=== PATIENT | female | born 1965 | race Asian ===

== ENCOUNTER 2016-12-17 05:11 | Inpatient (IN) | payer OTHER ==
[2016-12-17] MEDS ORDERED: MAGNESIUM SULFATE/D5W 1 GM/100 ML RTUPB IV PRN (05:14)
[2016-12-17] MEDS ORDERED: METHYLPREDNISOLONE INJ 125 MG/2 ML SDV IV ONE (05:14)
[2016-12-17] MEDS ORDERED: IPRATROPIUM/ALBUTEROL 0.5-2.5 MG/3 ML AMPUL NEB ONE ×3 (05:14→05:21)
[2016-12-17] MEDS ORDERED: AZITHROMYCIN INJ 500 MG VIAL IV ONE (05:22)
[2016-12-17] MEDS ORDERED: CEFTRIAXONE 1 GM/D5W RTU 1 GM/50 ML RTUPB IV ONE (05:22)
[2016-12-17] MEDS ORDERED: ALBUTEROL SULFATE 0.083% NEB 2.5 MG/3 ML AMPUL NEB ONE (05:23)
[2016-12-17 05:33] LABS: VENOUS BLOOD BASE EXCESS -11.3 mmol/L; VENOUS BLOOD HCO3 16.9 mmol/L (20-32); VENOUS BLOOD PCO2 46.5 mmHg (35-63)
[2016-12-17 05:34] LABS: ABSOLUTE BASOPHILS # (AUTO) 0.1 10^3/uL (0.0-0.2); ABSOLUTE EOSINOPHILS # (AUTO) 0.3 10^3/uL (0.0-0.6); ABSOLUTE MONOCYTES (AUTO) 1.7 10^3/uL (0.1-1.4); ABSOLUTE NEUT (AUTO) 12.2 10^3/uL (1.7-8.2); BASOPHILS % (AUTO) 0.3 % (0-2); EOSINOPHILS % (AUTO) 1.7 % (0-6); HEMATOCRIT 38.6 % (36.0-47.0); HEMOGLOBIN 12.5 g/dL (12.0-15.5); HGB HCT DIFFERENCE -1.1; MEAN CORPUSCULAR HEMOGLOBIN 28.2 pg (27.0-33.4); MEAN CORPUSCULAR HGB CONC 32.4 g/dL (32.0-36.0); MEAN CORPUSCULAR VOLUME 87 fl (80-97); MONOCYTES % (AUTO) 8.6 % (3-13); RED BLOOD COUNT 4.43 10^6/uL (3.72-5.28); RED CELL DISTRIBUTION WIDTH 13.3 % (11.5-14.0); SEGMENTED NEUTROPHILS % (AUTO) 63.4 % (42-78); WHITE BLOOD COUNT 19.2 10^3/uL (4.0-10.5)
[2016-12-17 05:35] LABS: VENOUS BLOOD PH 7.18 (7.30-7.42)
--- NOTE | 2016-12-17 05:35 | RADIOLOGY REPORT (SQ) ---
EXAM DESCRIPTION: CHEST SINGLE VIEW COMPLETED DATE/TIME: 12/17/2016 5:22 am REASON FOR STUDY: hypoxia COMPARISON: Chest x-ray 03/17/2013. EXAM PARAMETERS: NUMBER OF VIEWS: One view. TECHNIQUE: Single frontal radiographic view of the chest acquired. RADIATION DOSE: NA LIMITATIONS: None. FINDINGS: LUNGS AND PLEURA: There are extensive bilateral ground-glass opacities, more confluent in the perihilar regions. No pleural effusion or pneumothorax. MEDIASTINUM AND HILAR STRUCTURES: No obvious masses. HEART AND VASCULAR STRUCTURES: The heart is not enlarged. There is vascular congestion. BONES: No acute findings. HARDWARE: None in the chest. IMPRESSION: Extensive bilateral ground-glass opacities, suggestive of pulmonary edema, superimposed pneumonia is not excludable. Vascular congestion. TECHNICAL DOCUMENTATION: JOB ID: [id number]
[2016-12-17 05:45] LABS: PROTHROMBIN TIME 12.6 SEC (11.4-15.4)
--- NOTE | 2016-12-17 05:45 | ER Document Report ---
ED Respiratory Problem - General Mode of Arrival: Wheelchair Information source: Patient TRAVEL OUTSIDE OF THE [place] IN LAST 30 DAYS: No - HPI Similar symptoms previously: No Recently seen / treated by doctor: No <ELIZABETH TORRES - Last Filed: 12/17/16 06:06> <KIMBERLEY PUENTE - Last Filed: 12/17/16 10:01> - General Chief Complaint: Breathing Difficulty Stated Complaint: DIFFICULTY BREATHING Notes: Patient is a 51 year old female presenting to the emergency department for dyspnea. Patient has had a productive cough with clear sputum for the past few days. Patient has also been short of breath for the past 2 days. Patient denies any fever. Patient is a diabetic, has hypertension and hypercholesterolemia. Patient is not a smoker. Patient has no history of asthma or COPD. Patient has not been on any recent antibiotics. Patient's PCP is Dr. Reid. Patient is in respiratory distress so HPI is limited. (ELIZABETH TORRES) - Related Data Allergies/Adverse Reactions: Penicillins Allergy (Verified 12/17/16 06:07) Home Medications: Current Home Medications Amlodipine Besylate 1 tab PO QPM 12/17/16 [History] Atorvastatin Calcium 1 tab PO QPM 12/17/16 [History] Fluticasone Propionate [Flonase Nasal [employer] 50 Mcg/[employer] 16 gm] 1 spray IH DAILY 12/17/16 [History] Losartan Potassium 1 tab PO QPM 12/17/16 [History] Metformin HCl [Glucophage] 1 tab PO BID 12/17/16 [History] Metoprolol Tartrate [Lopressor] 1 tab PO BID 12/17/16 [History] Montelukast Sodium 1 tab PO QPM 12/17/16 [History] Past Medical History - General Information source: Patient - Social History Smoking Status: Never Smoker Cigarette use (# per day): No Chew tobacco use (# tins/day): No Smoking Education Provided: No Frequency of alcohol use: None Drug Abuse: None Family History: None Patient has suicidal ideation: No Patient has homicidal ideation: No - Past Medical History Cardiac Medical History: Reports: Hx Hypercholesterolemia, Hx Hypertension Endocrine Medical History: Reports: Hx Diabetes Mellitus Type 2 Surgical Hx: Negative <ELIZABETH TORRES - Last Filed: 12/17/16 06:06> Review of Systems - Review of Systems Constitutional: No symptoms reported. denies: Fever EENT: No symptoms reported Cardiovascular: No symptoms reported Respiratory: See HPI, Cough, Short of breath, Wheezing Gastrointestinal: No symptoms reported Genitourinary: No symptoms reported Female Genitourinary: No symptoms reported Musculoskeletal: No symptoms reported Skin: No symptoms reported Hematologic/Lymphatic: No symptoms reported Neurological/Psychological: No symptoms reported -: Yes All other systems reviewed and negative <ELIZABETH TORRES - Last Filed: 12/17/16 06:06> Physical Exam <ELIZABETH TORRES - Last Filed: 12/17/16 06:06> - Skin Skin Temperature: Cool Skin Moisture: Dry <KIMBERLEY PUENTE - Last Filed: 12/17/16 10:01> - Vital signs Vitals: Resp Pulse Ox 38 H 79 L 12/17/16 05:12 12/17/16 05:12 - Notes Notes: GENERAL: Alert, interacts well. Severe distress. HEAD: Normocephalic, atraumatic. EYES: Appear normal. Pupils equal, round, and reactive to light. ENT: Moist mucus membranes, tongue midline. NECK: Full range of motion. Supple. Trachea midline. LUNGS: Tachypnea. Hypoxic. Air movement is decreased bilaterally. Severe respiratory distress. HEART: Regular rate and rhythm. No murmurs, gallops, or rubs. ABDOMEN: Soft, non-tender. Non-distended. Normal bowel sounds. EXTREMITIES: Moves all 4 extremities spontaneously. Normal strength. No edema. Cyanosis. NEUROLOGICAL: Alert and oriented x3. No focal neurological deficits. GCS 15. PSYCH: Normal affect, normal mood. SKIN: Warm, dry, normal turgor. (ELIZABETH TORRES) Course - Laboratory Result Diagrams: 12/17/16 05:10 12/17/16 05:10 - Consults Dr. Romero Time consulted: 05:48 <ELIZABETH TORRES - Last Filed: 12/17/16 06:06> - Laboratory Result Diagrams: 12/17/16 05:10 12/17/16 05:10 - Diagnostic Test Radiology reviewed: Image reviewed, Reports reviewed <KIMBERLEY PUENTE - Last Filed: 12/17/16 10:01> - Re-evaluation Re-evalutation: 12/17/16 Patient presents with respiratory distress, tachycardia, and hypoxia. Patient denies any history of lung or heart problems. Patient is diabetic with hypertension. Patient initial oxygen saturation and 60s-70s. Patient with cyanosis and cool. Decreased breath sounds bilaterally. Patient given nebs, Solu-Medrol, magnesium, and placed on BiPAP. The patient is improving but chest x-ray showing bilateral pneumonia. Blood culture sent. Antibiotics initiated. Discussed with Dr. Romero and recommend that the patient be placed in the ICU as she is on FiO2 100% on BiPAP. Discussed with the patient that she has bilateral pneumonia and appears to be septic. Also discussed intubation but the patient is feeling better and appears better and will does not need to be intubated at this time. (KIMBERLEY PUENTE) - Vital Signs Vital signs: Temp Pulse Resp BP Pulse Ox 99.0 F 105 H 30 H 143/66 H 97 12/17/16 08:32 12/17/16 08:32 12/17/16 08:32 12/17/16 08:56 12/17/16 09:00 - Laboratory Laboratory results interpreted by me: 12/17/16 12/17/16 12/17/16 05:10 05:10 05:10 WBC 19.2 H Absolute Neutrophils 12.2 H Absolute Lymphocytes 5.0 H Absolute Monocytes 1.7 H VBG pH VBG HCO3 Carbon Dioxide 16 L Glucose 369 H POC Glucose Lactic Acid 6.2 H Phosphorus Magnesium Urine Glucose (UA) Urine Ketones 12/17/16 12/17/16 12/17/16 05:10 05:10 05:10 WBC Absolute Neutrophils Absolute Lymphocytes Absolute Monocytes VBG pH 7.18 L* VBG HCO3 16.9 L Carbon Dioxide Glucose POC Glucose Lactic Acid Phosphorus 4.8 H Magnesium 1.5 L Urine Glucose (UA) Urine Ketones 12/17/16 12/17/16 05:14 06:00 WBC Absolute Neutrophils Absolute Lymphocytes Absolute Monocytes VBG pH VBG HCO3 Carbon Dioxide Glucose POC Glucose 358 H Lactic Acid Phosphorus Magnesium Urine Glucose (UA) >=500 H Urine Ketones TRACE H - Consults Dr. Romero Reason for consultation: 12/17/16 05:[address] Correa who is assemblies and installations inspector for Dr. Reid. He will admit the patient to ICU. (ELIZABETH TORRES) Critical Care Note - Critical Care Note Total time excluding time spent on procedures (mins): 45 - Evaluation and management of respiratory distress, pneumonia, sepsis, coordination of admission , counseling of patient <KIMBERLEY PUENTE - Last Filed: 12/17/16 10:01> Discharge <ELIZABETH TORRES - Last Filed: 12/17/16 06:06> - Discharge Admitting Provider: [facility] Admitted: ICU <KIMBERLEY PUENTE - Last Filed: 12/17/16 10:01> - Discharge Clinical Impression: Respiratory distress Pneumonia Qualifiers: Pneumonia type: due to unspecified organism Laterality: bilateral Lung location : lower lobe of lung Qualified Code(s): J18.9 - Pneumonia, unspecified organism Sepsis Qualifiers: Sepsis type: sepsis due to unspecified organism Qualified Code(s): A41.9 - Sepsis, unspecified organism Condition: Fair Disposition: ADMITTED INPATIENT Scribe Attestation: 12/17/16 10:01 I personally performed the services described in the documentation, reviewed and edited the documentation which was dictated to the scribe in my presence, and it accurately records my words and actions. (KIMBERLEY PUENTE) Scribe Documentation - Scribe Written by Scrketty:: Harjinder Reid 12/17/2016 5:52 acting as scribe for :: Ashlie <ELIZABETH TORRES - Last Filed: 12/17/16 06:06>
[2016-12-17 05:47] LABS: ALANINE AMINOTRANSFERASE 24 U/L (9-52); ALBUMIN 4.1 g/dL (3.5-5.0); ALKALINE PHOSPHATASE 87 U/L (38-126); ANION GAP 19 (5-19); ASPARTATE AMINO TRANSFERASE 19 U/L (14-36); BILIRUBIN,DIRECT 0.3 mg/dL (0.0-0.4); BILIRUBIN,TOTAL 0.8 mg/dL (0.2-1.3); BLOOD UREA NITROGEN 16 mg/dL (7-20); CALCIUM 9.6 mg/dL (8.4-10.2); CARBON DIOXIDE 16 mmol/L (22-30); CHLORIDE 103 mmol/L (98-107); CREATINE KINASE 95 U/L (30-135); GLUCOSE 369 mg/dL (75-110); POTASSIUM 3.8 mmol/L (3.6-5.0); TOTAL PROTEIN 7.2 g/dL (6.3-8.2)
[2016-12-17] MEDS ORDERED: VANCOMYCIN HCL INJ 1000 MG VIAL IV ONE (05:48)
[2016-12-17 06:00] LABS: TROPONIN I < 0.012 ng/mL
[2016-12-17 06:37] LABS: APPEARANCE,URINE CLEAR; BILIRUBIN,URINE NEGATIVE (NEGATIVE); GLUCOSE, URINE >=500 mg/dL (NEGATIVE); KETONES,URINE TRACE mg/dL (NEGATIVE); LEUKOCYTE ESTERASE,URINE NEGATIVE (NEGATIVE); NITRITE,URINE NEGATIVE (NEGATIVE); PROTEIN,URINE NEGATIVE (NEGATIVE); URINE SPECIFIC GRAVITY 1.011; UROBILINOGEN,URINE NEGATIVE mg/dL (<2.0)
[2016-12-17] MEDS ORDERED: DEXTROSE 40% GEL 15 GM TUBE PO PRN ×2 (06:45)
[2016-12-17] MEDS ORDERED: FUROSEMIDE INJ/PF 40 MG/4 ML SDV IV ONE (06:45)
[2016-12-17] MEDS ORDERED: DEXTROSE 50%-WATER 25 GM/50 ML DISP.SYRIN IV PRN ×2 (06:45)
[2016-12-17] MEDS ORDERED: GLUCAGON,HUMAN RECOMB 1 MG INJ IM PRN (06:45)
[2016-12-17] MEDS ORDERED: LEVOFLOXACIN 750 MG/D5W RTU 750 MG/150 ML RTUPB IV ONE (07:00)
[2016-12-17 07:10] LABS: LIPASE 88.4 U/L (23-300); PHOSPHORUS 4.8 mg/dL (2.5-4.5)
[2016-12-17 07:18] LABS: URINE BARBITURATES SCREEN NEGATIVE; URINE METHADONE SCREEN NEGATIVE; URINE OPIATES LOW NEGATIVE; URINE PHENCYCLIDINE SCREEN NEGATIVE
[2016-12-17 07:42] LABS: THYROID STIMULATING HORMONE 1.59 uIU/mL (0.47-4.68)
[2016-12-17] MEDS: IPRATROPIUM/ALBUTEROL 0.5-2.5 MG/3 ML AMPUL NEB PRN (07:54)
--- NOTE | 2016-12-17 08:12 | EKG REPORT ---
SEVERITY:- ABNORMAL ECG - ATRIAL FIBRILLATION BORDERLINE INFERIOR Q WAVES : Confirmed by: Ty Nevarez MD 17-Dec-2016 08:11:24
[2016-12-17 08:19] LABS: ARTERIAL BLOOD BASE EXCESS -9.1 mmol/L; ARTERIAL BLOOD O2 SATURATION 98.1 % (94-98)
--- NOTE | 2016-12-17 09:17 | RADIOLOGY REPORT (SQ) ---
EXAM DESCRIPTION: CT CHEST WITHOUT COMPLETED DATE/TIME: 12/17/2016 8:59 am REASON FOR STUDY: pneumonia COMPARISON: Radiographs from earlier. TECHNIQUE: CT scan performed of the chest without intravenous contrast. Images reviewed with lung, soft tissue and bone windows. Reconstructed coronal and sagittal MPR images reviewed. All images st ored on PACS. All CT scanners at this facility use dose modulation, iterative reconstruction, and/or weight based d osing when appropriate to reduce radiation dose to as low as reasonably achievable (ALARA). [facility]: Dose Right [facility]: CareDose [facility]: Dose Right [facility]: Teradose 4D [facility]: Smart MomentCam RADIATION DOSE: Up-to-date CT equipment and radiation dose reduction techniques were employed. CTDIv ol: 17.6 mGy. DLP: 638 mGy-cm. mGy. LIMITATIONS: No technical limitations. FINDINGS: LUNGS AND PLEURA: Diffuse patchy ground-glass infiltrates in the upper lobes. Areas of mo re focal dense consolidation particularly in the lower lobes. Small to moderate bilateral pleural ef fusions. HILAR AND MEDIASTINAL STRUCTURES: Limited assessment without contrast. No bulky adenopathy or mass. HEART AND VASCULAR STRUCTURES: Heart size looks relatively normal. No aortic aneurysm. No pericardi al effusion. UPPER ABDOMEN: No significant findings. Limited exam. THYROID AND OTHER SOFT TISSUES: No masses. No adenopathy. BONES: No significant finding. HARDWARE: None in the chest. OTHER: No other significant findings. IMPRESSION: As seen radiographically, extensive airspace infiltrates. Bilateral effusions. Presuma inge related to pulmonary edema. Superimposed pneumonia is also in the differential. TECHNICAL DOCUMENTATION: JOB ID: [id number] Quality ID # [id number]: Final reports with documentation of one or more dose reduction techniques (e.g., Au tomated exposure control, adjustment of the mA and/or kV according to patient size, use of iterative reconstruction technique) 2010 [employer]- All Rights Reserved
[2016-12-17] MEDS: ENOXAPARIN SODIUM INJ 40 MG/0.4 ML DISP.SYRIN SUBCUT SCH (10:55)
[2016-12-17 11:22] LABS: ARTERIAL BLOOD BASE EXCESS -8.2 mmol/L; ARTERIAL BLOOD O2 SATURATION 95.1 % (94-98)
[2016-12-17] MEDS ORDERED: METOPROLOL TARTRATE 50 MG TABLET PO SCH (11:45)
[2016-12-17] MEDS ORDERED: METFORMIN HCL PO SCH (11:45)
[2016-12-17] MEDS ORDERED: VANCOMYCIN HCL 0 MG in DEXTROSE 5%-WATER 250 ML IV NR (11:45)
[2016-12-17] MEDS ORDERED: IMIPENEM/CILASTATIN SODIUM INJ 500 MG VIAL IV ONE (12:00)
[2016-12-17 12:03] LABS: CREATINE KINASE MB 1.31 ng/mL (<4.55); TROPONIN I 0.026 ng/mL
[2016-12-17 13:20] LABS: PROTHROMBIN TIME 13.1 SEC (11.4-15.4)
[2016-12-17 13:21] LABS: PARTIAL THROMBOPLASTIN TIME 35.3 SEC (23.5-35.8)
--- NOTE | 2016-12-17 13:33 | PDOC H&P ---
History of Present Illness Admission Date/PCP: 12/17/16 06:37 HONEY GONZALEZ MD History of Present Illness: Patient is a 51-year-old female with history of type 2 diabetes mellitus she came to the emergency room for evaluation of dyspnea, cough the cough is productive of sputum. She was evaluated in the emergency room, she was in respiratory distress and she required positive pressure ventilation with BiPAP machine. The hemogram showed WBC 19.2 thousand venous pH was 7.18 that was elevated lactic acid in the blood. The initial chest x-ray that was done suggest pulmonary edema but the BMP was normal which virtually rule out CHF as a potential cause of the x-ray findings. A CT scan of the chest was done without contrast showed diffuse patchy groundglass infiltrates in the upper lobes, areas of more focal dense consolidation particularly in the lower lobes also found was moderate bilateral pleural effusion. She has very extensive pneumonic process in a relatively young female who does not smoke cigarettes she is a diabetic though ,that is a risk factor for pneumonia by itself but it would be reasonable to rule out HIV infection in this patient though unlikely. Past Medical History Cardiac Medical History: Reports: Hyperlipidema, Hypertension Endocrine Medical History: Reports: Diabetes Mellitus Type 2 Social History Smoking Status: Never Smoker Frequency of Alcohol Use: Occasional Drugs: None Hx Prescription Drug Abuse: No Family History Family History: None Parental Family History Reviewed: Yes Children Family History Reviewed: Yes Sibling(s) Family History Reviewed.: Yes Medication/Allergy Home Medications: Amlodipine Besylate 1 tab PO QPM 12/17/16 Atorvastatin Calcium 1 tab PO QPM 12/17/16 Fluticasone Propionate [Flonase Nasal [place] 50 Mcg/[place] 16 gm] 1 spray IH DAILY 12/17/16 Losartan Potassium 1 tab PO QPM 12/17/16 Metformin HCl [Glucophage] 1 tab PO BID 12/17/16 Metoprolol Tartrate [Lopressor] 1 tab PO BID 12/17/16 Montelukast Sodium 1 tab PO QPM 12/17/16 Allergies/Adverse Reactions: Penicillins Allergy (Verified 12/17/16 06:07) Review of Systems Constitutional: PRESENT: chills Eyes: ABSENT: visual disturbances Ears: ABSENT: hearing changes Cardiovascular: ABSENT: chest pain, dyspnea on exertion, edema, orthropnea, palpitations Respiratory: PRESENT: cough, dyspnea, sputum Gastrointestinal: ABSENT: abdominal pain, constipation, diarrhea, hematemesis, hematochezia, nausea, vomiting Genitourinary: ABSENT: dysuria, hematuria Musculoskeletal: ABSENT: joint swelling Integumentary: ABSENT: rash, wounds Neurological: ABSENT: abnormal gait, abnormal speech, confusion, dizziness, focal weakness, syncope Psychiatric: ABSENT: anxiety, depression, homidical ideation, suicidal ideation Endocrine: ABSENT: cold intolerance, heat intolerance, menstrual abnormalities, polydipsia, polyuria Hematologic/Lymphatic: ABSENT: easy bleeding, easy bruising, lymphadenopathy Physical Exam Vital Signs: Temp Pulse Resp BP Pulse Ox 99.0 F 92 21 H 112/63 100 12/17/16 08:32 12/17/16 12:50 12/17/16 12:50 12/17/16 12:50 12/17/16 12:50 Intake & Output 12/16/16 12/17/16 12/18/16 06:59 06:59 06:59 Output Total 150 Balance -150 Weight 80.4 kg General appearance: PRESENT: severe distress Head exam: PRESENT: atraumatic, normocephalic Eye exam: PRESENT: conjunctiva pink, EOMI, PERRLA. ABSENT: scleral icterus Ear exam: PRESENT: normal external ear exam Mouth exam: PRESENT: moist, tongue midline Neck exam: PRESENT: full ROM Respiratory exam: PRESENT: rales, rhonchi Cardiovascular exam: PRESENT: RRR, +S1, +S2 Vascular exam: PRESENT: normal capillary refill GI/Abdominal exam: PRESENT: normal bowel sounds, soft Rectal exam: PRESENT: deferred Neurological exam: PRESENT: alert, awake, oriented to person, oriented to place , oriented to time, oriented to situation, CN II-XII grossly intact Psychiatric exam: PRESENT: appropriate affect, normal mood Skin exam: PRESENT: dry, intact, warm Results Laboratory Results: 12/17/16 12/17/16 12/17/16 07:11 07:56 09:46 Carbonic Acid 1.24 HCO3/H2CO3 Ratio 14:1 ABG pH 7.25 L ABG pCO2 41.1 ABG pO2 127.2 H ABG HCO3 17.6 L ABG O2 Saturation 98.1 H ABG Base Excess -9.1 FiO2 100% Lactic Acid 5.9 H Ammonia 15.0 12/17/16 10:00 Carbonic Acid 0.96 L HCO3/H2CO3 Ratio 17:1 ABG pH 7.34 L ABG pCO2 31.8 L ABG pO2 78.8 L ABG HCO3 16.6 L ABG O2 Saturation 95.1 ABG Base Excess -8.2 FiO2 40% Lactic Acid Ammonia 12/17/16 12/17/16 11:20 11:20 Creatine Kinase 121 CK-MB (CK-2) 1.31 Troponin I 0.026 Impressions: Chest CT 12/17/16 00:00 IMPRESSION: As seen radiographically, extensive airspace infiltrates. Bilateral effusions. Presumably related to pulmonary edema. Superimposed pneumonia is also in the differential. Chest X-Ray 12/17/16 05:13 IMPRESSION: Extensive bilateral ground-glass opacities, suggestive of pulmonary edema, superimposed pneumonia is not excludable. Vascular congestion. Assessment & Plan - Diagnosis (1) Bilateral pneumonia Qualifiers: Pneumonia type: due to unspecified organism Lung location: unspecified part of lung Qualified Code(s): J18.9 - Pneumonia, unspecified organism Is this a current diagnosis for this admission?: Yes Plan: She has extensive bilateral pneumonia, she will be treated with antibiotic to cover community acquired pathogens as well as MRSA, IV Levaquin, aztreonam and vancomycin this week cover gram-negative organisms and gram-positive organisms (2) Diabetes mellitus Qualifiers: Diabetes mellitus type: type 2 Diabetes mellitus complication status: without complication 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
[2016-12-17] MEDS: HYDROCORTISONE SOD SUCCINATE INJ/PF 100 MG/2 ML SDV IV SCH ×2 (14:00→21:41)
[2016-12-17] MEDS: MAGNESIUM SULFATE/D5W 1 GM/100 ML RTUPB IV SCH ×3 (14:00→17:14)
[2016-12-17] MEDS: NORMAL SALINE 1000 ML 1,000 ML IV PRN (14:00)
[2016-12-17 14:31] LABS: ADD HIVPANEL? NO; HIV (1 AND 2) ANTIBODY NEGATIVE (NEGATIVE)
[2016-12-17] MEDS: VANCOMYCIN HCL 1,250 MG in DEXTROSE 5%-WATER 250 ML IV SCH (16:47)
[2016-12-17] MEDS: AMLODIPINE BESYLATE 5 MG TABLET PO SCH (17:14)
[2016-12-17] MEDS: MONTELUKAST SODIUM 10 MG TABLET PO SCH (17:14)
[2016-12-17] MEDS: LOSARTAN POTASSIUM 50 MG TABLET PO SCH (17:14)
[2016-12-17] MEDS: AZTREONAM 1 GM in DEXTROSE 5%-WATER 50 ML IV SCH (17:15)
[2016-12-17 17:51] LABS: CREATINE KINASE MB 2.29 ng/mL (<4.55); TROPONIN I 0.017 ng/mL
--- NOTE | 2016-12-17 17:54 | PDOC CONSULTATION ---
Consultation Consult Date: 12/17/16 Attending physician:: ORION RODRÍGUEZ Consult reason:: acute resp failure History of Present Illness Admission Date/PCP: 12/17/16 06:37 HONEY GONZALEZ MD History of Present Illness: VJ PICKENS is a 51 year old female c/o increasing SOB and cough for last 3 days presented hypercapnic and hypoxic.She has nad no hemoptysis but has had a hx of + PPD and was treated in the past no history chronic lung disease as a child.She admits to exsposure to passive smoke as a child and as an adult.She has never smoked and denies exposure to potential respiratory toxins .She has a cat and a dog.No recent travel.Sleeps on two pillows no PND,nocturnal cough or edema.She admits to snoring restlesssleep nocturia,unrestful slrrp and excessive daytime somulence.She is currently comfortable but mildly tachypnic on BI PAP Past Medical History Cardiac Medical History: Reports: Hyperlipidema, Hypertension Endocrine Medical History: Reports: Diabetes Mellitus Type 2 Social History Information Source: Patient, COUNTS INCLUDE 234 BEDS AT THE [facility] Records Lives with: Family Smoking Status: Never Smoker Passive smoke exposure as: Both Frequency of Alcohol Use: Occasional Drugs: None Hx Prescription Drug Abuse: No Family History Family History: None, CAD, DM, Hyperlipidemia, Hypertension, Malignancy Parental Family History Reviewed: Yes Children Family History Reviewed: Yes Sibling(s) Family History Reviewed.: Yes Medication/Allergy Home Medications: Amlodipine Besylate 5 mg PO QPM 12/17/16 Atorvastatin Calcium 40 mg PO QPM 12/17/16 Fluticasone Propionate [Flonase Nasal [place] 50 Mcg/[place] 16 gm] 1 spray IH DAILY 12/17/16 Losartan Potassium 100 mg PO QPM 12/17/16 Metformin HCl [Glucophage] 1,000 mg PO Q12 12/17/16 Metoprolol Tartrate [Lopressor] 50 mg PO Q12 12/17/16 Montelukast Sodium 10 mg PO QPM 12/17/16 Allergies/Adverse Reactions: Penicillins Allergy (Verified 12/17/16 06:07) Review of Systems All systems: reviewed and no additional remarkable complaints except as stated Physical Exam Vital Signs: Temp Pulse Resp BP Pulse Ox 99.0 F 101 H 20 112/63 100 12/17/16 08:32 12/17/16 10:09 12/17/16 12:00 12/17/16 11:56 12/17/16 12:00 Intake & Output 12/16/16 12/17/16 12/18/16 06:59 06:59 06:59 Weight 80.4 kg General appearance: PRESENT: cooperative, disheveled, mild distress, obese, well -developed Head exam: PRESENT: atraumatic, normocephalic Eye exam: PRESENT: conjunctiva pale, EOMI Mouth exam: PRESENT: dry mucosa, neck supple, tongue midline Neck exam: ABSENT: carotid bruit, JVD, lymphadenopathy, thyromegaly Respiratory exam: PRESENT: decreased breath sounds, prolonged expiratory phas, rales, rhonchi, symmetrical, unlabored. ABSENT: retraction, stridor Cardiovascular exam: PRESENT: RRR, +S1, +S2 Pulses: PRESENT: normal radial pulses GI/Abdominal exam: PRESENT: normal bowel sounds, soft. ABSENT: distended, guarding, mass, organolmegaly, rebound, tenderness Rectal exam: PRESENT: deferred Musculoskeletal exam: PRESENT: normal inspection Neurological exam: PRESENT: alert, awake Psychiatric exam: PRESENT: normal mood Skin exam: PRESENT: dry, warm Results Laboratory Results: 12/17/16 12/17/16 12/17/16 07:11 07:56 09:46 Carbonic Acid 1.24 HCO3/H2CO3 Ratio 14:1 ABG pH 7.25 L ABG pCO2 41.1 ABG pO2 127.2 H ABG HCO3 17.6 L ABG O2 Saturation 98.1 H ABG Base Excess -9.1 FiO2 100% Lactic Acid 5.9 H Ammonia 15.0 12/17/16 10:00 Carbonic Acid 0.96 L HCO3/H2CO3 Ratio 17:1 ABG pH 7.34 L ABG pCO2 31.8 L ABG pO2 78.8 L ABG HCO3 16.6 L ABG O2 Saturation 95.1 ABG Base Excess -8.2 FiO2 40% Lactic Acid Ammonia 12/17/16 11:20 Creatine Kinase 121 Impressions: Chest CT 12/17/16 00:00 IMPRESSION: As seen radiographically, extensive airspace infiltrates. Bilateral effusions. Presumably related to pulmonary edema. Superimposed pneumonia is also in the differential. Chest X-Ray 12/17/16 05:13 IMPRESSION: Extensive bilateral ground-glass opacities, suggestive of pulmonary edema, superimposed pneumonia is not excludable. Vascular congestion. Assessment & Plan - Diagnosis (1) Acute respiratory failure with hypoxia Is this a current diagnosis for this admission?: Yes Plan: bipap (2) Bilateral pneumonia Qualifiers: Pneumonia type: due to unspecified organism Lung location: unspecified part of lung Qualified Code(s): J18.9 - Pneumonia, unspecified organism Is this a current diagnosis for this admission?: Yes Plan: CAP antibiotics (3) Sepsis Qualifiers: Sepsis type: sepsis due to unspecified organism Qualified Code(s): A41.9 - Sepsis, unspecified organism Is this a current diagnosis for this admission?: Yes - Time Critical Time spent with patient: 35 or more minutes - Inpatient Certification Based on my medical assessment, after consideration of the patient's comorbidities, presenting symptoms, or acuity I expect that the services needed warrant INPATIENT care.: Yes
[2016-12-17] MEDS ORDERED: AMLODIPINE BESYLATE 5 MG TABLET PO SCH (18:00)
[2016-12-17] MEDS ORDERED: MONTELUKAST SODIUM 10 MG TABLET PO SCH (18:00)
[2016-12-17] MEDS ORDERED: (PENDING PHARMACY ID) (Losartan Potassium [Losartan Potassium] 1 TAB) PO SCH (18:00)
[2016-12-17] MEDS ORDERED: ATORVASTATIN CALCIUM 40 MG TABLET PO SCH (18:00)
[2016-12-17] MEDS: INSULIN LISPRO 100 UNIT/ML 3 ML VIAL SUBCUT PRN (18:27)
[2016-12-17] MEDS: ACETYLCYSTEINE 20% SOLN 800 MG/4 ML VIAL.NEB NEB SCH (20:06)
[2016-12-17] MEDS: METOPROLOL TARTRATE 50 MG TABLET PO SCH (21:41)
[2016-12-17] MEDS: ATORVASTATIN CALCIUM 40 MG TABLET PO SCH (21:42)
[2016-12-17] MEDS: METFORMIN HCL 500 MG TABLET PO SCH (21:42)
[2016-12-17 23:39] LABS: CREATINE KINASE MB 2.55 ng/mL (<4.55); TROPONIN I 0.02 ng/mL
[2016-12-18] MEDS: AZTREONAM 1 GM in DEXTROSE 5%-WATER 50 ML IV SCH ×3 (02:31→17:47)
[2016-12-18] MEDS: VANCOMYCIN HCL 1,250 MG in DEXTROSE 5%-WATER 250 ML IV SCH ×2 (03:42→17:47)
[2016-12-18 05:28] LABS: ABSOLUTE LYMPHOCYTES (AUTO) 1.4 10^3/uL (0.5-4.7); ABSOLUTE NEUT (AUTO) 11.9 10^3/uL (1.7-8.2); BASOPHILS % (AUTO) 0.1 % (0-2); HEMATOCRIT 29.8 % (36.0-47.0); HGB HCT DIFFERENCE 0.2; LYMPHOCYTES % (AUTO) 9.8 % (13-45); MEAN CORPUSCULAR HEMOGLOBIN 28.2 pg (27.0-33.4); MEAN CORPUSCULAR HGB CONC 33.4 g/dL (32.0-36.0); MEAN CORPUSCULAR VOLUME 85 fl (80-97); MONOCYTES % (AUTO) 6.9 % (3-13); RED BLOOD COUNT 3.53 10^6/uL (3.72-5.28); RED CELL DISTRIBUTION WIDTH 13.2 % (11.5-14.0); SEGMENTED NEUTROPHILS % (AUTO) 83.2 % (42-78); WHITE BLOOD COUNT 14.3 10^3/uL (4.0-10.5)
[2016-12-18] MEDS: HYDROCORTISONE SOD SUCCINATE INJ/PF 100 MG/2 ML SDV IV SCH ×3 (05:32→21:34)
[2016-12-18 05:37] LABS: ALANINE AMINOTRANSFERASE 23 U/L (9-52); ALBUMIN 3.4 g/dL (3.5-5.0); ALKALINE PHOSPHATASE 60 U/L (38-126); ANION GAP 10 (5-19); ASPARTATE AMINO TRANSFERASE 16 U/L (14-36); BILIRUBIN,DIRECT 0.3 mg/dL (0.0-0.4); BILIRUBIN,TOTAL 0.6 mg/dL (0.2-1.3); BLOOD UREA NITROGEN 23 mg/dL (7-20); CALCIUM 8.7 mg/dL (8.4-10.2); CARBON DIOXIDE 19 mmol/L (22-30); CHLORIDE 107 mmol/L (98-107); CHOLESTEROL 137.37 mg/dL (0-200); CREATININE RESULT 0.76 mg/dL (0.52-1.25); Direct HDL 38 mg/dL (>40); GLUCOSE 195 mg/dL (75-110); SODIUM 136.3 mmol/L (137-145); TOTAL PROTEIN 6.1 g/dL (6.3-8.2); TRIGLYCERIDES 81 mg/dL (<150)
[2016-12-18 05:48] LABS: DIRECT LDL 83 mg/dL (<100)
[2016-12-18 06:14] LABS: MAGNESIUM 2.6 mg/dL (1.6-2.3); POTASSIUM 4.8 mmol/L (3.6-5.0)
[2016-12-18 06:19] LABS: ARTERIAL BLOOD BASE EXCESS -6.5 mmol/L; ARTERIAL BLOOD O2 SATURATION 98.4 % (94-98)
[2016-12-18] MEDS: IPRATROPIUM/ALBUTEROL 0.5-2.5 MG/3 ML AMPUL NEB PRN (07:54)
[2016-12-18] MEDS: ACETYLCYSTEINE 20% SOLN 800 MG/4 ML VIAL.NEB NEB SCH ×2 (07:54→19:40)
--- NOTE | 2016-12-18 07:56 | RADIOLOGY REPORT (SQ) ---
EXAM DESCRIPTION: CHEST SINGLE VIEW COMPLETED DATE/TIME: 12/18/2016 6:10 am REASON FOR STUDY: resp failure COMPARISON: 12/17/2016. EXAM PARAMETERS: NUMBER OF VIEWS: One view. TECHNIQUE: Single frontal radiographic view of the chest acquired. RADIATION DOSE: NA LIMITATIONS: None. FINDINGS: LUNGS AND PLEURA: Moderate lung volumes. [id number] mixed interstitial and airspace opacities with lower lobe predominance. MEDIASTINUM AND HILAR STRUCTURES: No masses. Contour normal. HEART AND VASCULAR STRUCTURES: Mild enlargement of the cardiac silhouette. Atherosclerosis. BONES: No acute findings. HARDWARE: None in the chest. OTHER: No other significant finding. IMPRESSION: [id number] mixed interstitial and airspace opacities. Interval improvement. TECHNICAL DOCUMENTATION: JOB ID: [id number]
--- NOTE | 2016-12-18 09:42 | PDOC PROGRESS REPORT ---
Subjective Progress Note for:: 12/18/16 Subjective:: Patient also see a cardiology patient was admitted for the respiratory distress and extensive pneumonia Patient was initially put on a BiPAP currently on a nasal cannula Patient is currently doing much better Patients denied any chest pain denied any shortness of the breath Patients denied any heart problem in the past Physical Exam Vital Signs: Temp Pulse Resp BP Pulse Ox 97.6 F 72 16 111/54 L 100 12/18/16 08:00 12/18/16 07:59 12/18/16 08:00 12/18/16 07:56 12/18/16 08:00 Intake & Output 12/17/16 12/18/16 12/19/16 06:59 06:59 06:59 Intake Total 1474 Output Total 1050 Balance 424 Weight 78.5 kg General appearance: PRESENT: no acute distress, well-developed, well-nourished Head exam: PRESENT: atraumatic, normocephalic Eye exam: PRESENT: conjunctiva pink, EOMI, PERRLA. ABSENT: scleral icterus Ear exam: PRESENT: normal external ear exam Mouth exam: PRESENT: moist, tongue midline Neck exam: PRESENT: full ROM. ABSENT: carotid bruit, JVD, lymphadenopathy, thyromegaly Respiratory exam: PRESENT: clear to auscultation kal Cardiovascular exam: PRESENT: RRR. ABSENT: diastolic murmur, rubs, systolic murmur Pulses: PRESENT: normal dorsalis pedis pul, +2 pedal pulses bilateral Vascular exam: PRESENT: normal capillary refill GI/Abdominal exam: PRESENT: normal bowel sounds, soft. ABSENT: distended, guarding, mass, organolmegaly, rebound, tenderness Rectal exam: PRESENT: deferred Neurological exam: PRESENT: alert, awake, oriented to person, oriented to place , oriented to time, oriented to situation, CN II-XII grossly intact. ABSENT: motor sensory deficit Psychiatric exam: PRESENT: appropriate affect, normal mood. ABSENT: homicidal ideation, suicidal ideation Skin exam: PRESENT: dry, intact, warm. ABSENT: cyanosis, rash Results Laboratory Results: 12/18/16 05:00 12/18/16 05:00 12/17/16 12/17/16 12/18/16 09:46 10:00 05:00 WBC RBC Hgb Hct MCV MCH MCHC RDW Plt Count Seg Neutrophils % Lymphocytes % Monocytes % Eosinophils % Basophils % Absolute Neutrophils Absolute Lymphocytes Absolute Monocytes Absolute Eosinophils Absolute Basophils Carbonic Acid 0.96 L HCO3/H2CO3 Ratio 17:1 ABG pH 7.34 L ABG pCO2 31.8 L ABG pO2 78.8 L ABG HCO3 16.6 L ABG O2 Saturation 95.1 ABG Base Excess -8.2 FiO2 40% Sodium 136.3 L Potassium 4.8 D Chloride 107 Carbon Dioxide 19 L Anion Gap 10 BUN 23 H Creatinine 0.76 Est GFR ( Amer) > 60 Est GFR (Non-Af Amer) > 60 Glucose 195 H Lactic Acid 5.9 H Calcium 8.7 Magnesium 2.6 H D Total Bilirubin 0.6 AST 16 ALT 23 Alkaline Phosphatase 60 Total Protein 6.1 L Albumin 3.4 L Triglycerides 81 Cholesterol 137.37 LDL Cholesterol Direct 83 VLDL Cholesterol 16.0 HDL Cholesterol 38 L 12/18/16 12/18/16 05:00 06:00 WBC 14.3 H RBC 3.53 L Hgb 10.0 L D Hct 29.8 L MCV 85 MCH 28.2 MCHC 33.4 RDW 13.2 Plt Count 304 Seg Neutrophils % 83.2 H Lymphocytes % 9.8 L Monocytes % 6.9 Eosinophils % 0.0 Basophils % 0.1 Absolute Neutrophils 11.9 H Absolute Lymphocytes 1.4 Absolute Monocytes 1.0 Absolute Eosinophils 0.0 Absolute Basophils 0.0 Carbonic Acid 1.04 L HCO3/H2CO3 Ratio 17:1 ABG pH 7.34 L ABG pCO2 34.7 L ABG pO2 127.2 H ABG HCO3 18.5 L ABG O2 Saturation 98.4 H ABG Base Excess -6.5 FiO2 4 LITERS Sodium Potassium Chloride Carbon Dioxide Anion Gap BUN Creatinine Est GFR ( Amer) Est GFR (Non-Af Amer) Glucose Lactic Acid Calcium Magnesium Total Bilirubin AST ALT Alkaline Phosphatase Total Protein Albumin Triglycerides Cholesterol LDL Cholesterol Direct VLDL Cholesterol HDL Cholesterol 12/17/16 12/17/16 12/17/16 11:20 11:20 17:15 Creatine Kinase 121 141 H CK-MB (CK-2) 1.31 Troponin I 0.026 12/17/16 12/17/16 12/17/16 17:15 23:06 23:06 Creatine Kinase 138 H CK-MB (CK-2) 2.29 2.55 Troponin I 0.017 0.020 Impressions: Chest CT 12/17/16 00:00 IMPRESSION: As seen radiographically, extensive airspace infiltrates. Bilateral effusions. Presumably related to pulmonary edema. Superimposed pneumonia is also in the differential. Chest X-Ray 12/18/16 06:00 IMPRESSION: [id number] mixed interstitial and airspace opacities. Interval improvement. Assessment & Plan - Diagnosis (1) Acute respiratory failure with hypoxia Is this a current diagnosis for this admission?: Yes Plan: Currently all improving most likely from underlying pneumonia (2) Bilateral pneumonia Qualifiers: Pneumonia type: due to unspecified organism Lung location: unspecified part of lung Qualified Code(s): J18.9 - Pneumonia, unspecified organism Is this a current diagnosis for this admission?: Yes Plan: Continues to broad-spectrum antibiotic (3) Diabetes mellitus Qualifiers: Diabetes mellitus type: type 2 Diabetes mellitus complication status: without complication Diabetes mellitus terminal gauger supervisor insulin use: without terminal gauger supervisor use Qualified Code(s): E11.9 - Type 2 diabetes mellitus without complications Is this a current diagnosis for this admission?: Yes Plan: Continues a sliding scale [facility] (4) Hypertension Is this a current diagnosis for this admission?: Yes Plan: Currently stable (5) Pleural effusion Is this a current diagnosis for this admission?: Yes Plan: Patient scheduled for thoracocentesis - Time Time Spent with patient: 15-24 minutes Medications reviewed and adjusted accordingly: Yes Anticipated discharge: Home Within: Other - Inpatient Certification Medical Necessity: Need for IV Antibiotics Post Hospital Care: D/C Fashion Adviser Documentation - Plan Summary Plan Summary: Continues to IV antibiotic scheduled for thoracocentesis and continues follow with the pulmonary
[2016-12-18] MEDS: METFORMIN HCL 500 MG TABLET PO SCH ×2 (09:45→21:32)
[2016-12-18] MEDS: METOPROLOL TARTRATE 50 MG TABLET PO SCH ×2 (09:45→21:32)
[2016-12-18] MEDS: ENOXAPARIN SODIUM INJ 40 MG/0.4 ML DISP.SYRIN SUBCUT SCH (09:46)
[2016-12-18] MEDS ORDERED: LEVOFLOXACIN 750 MG/D5W RTU 750 MG/150 ML RTUPB IV SCH (10:00)
[2016-12-18] MEDS: INSULIN LISPRO 100 UNIT/ML 3 ML VIAL SUBCUT PRN ×2 (11:23→21:41)
--- NOTE | 2016-12-18 12:33 | RADIOLOGY REPORT (SQ) ---
EXAM DESCRIPTION: U/S CHEST COMPLETED DATE/TIME: 12/18/2016 11:13 am REASON FOR STUDY: bilateral pleural effusion COMPARISON: CT chest 12/17/2016 TECHNIQUE: Limited chest ultrasound bilaterally LIMITATIONS: No technical limitations FINDINGS: There are very small bilateral pleural effusions, smaller than on CT exam 12/17/2016. Thes e findings were discussed with Dr. Romero. Ultrasound-guided thoracentesis canceled IMPRESSION: Very small bilateral pleural effusions. No thoracentesis performed TECHNICAL DOCUMENTATION: JOB ID: [id number] [employer]- All Rights Reserved
--- NOTE | 2016-12-18 12:57 | PDOC PROGRESS REPORT ---
Subjective Progress Note for:: 12/18/16 Subjective:: patient without complaints I feel better minutes Physical Exam Vital Signs: Temp Pulse Resp BP Pulse Ox 97.6 F 72 16 111/54 L 100 12/18/16 08:00 12/18/16 07:59 12/18/16 08:00 12/18/16 07:56 12/18/16 08:00 Intake & Output 12/17/16 12/18/16 12/19/16 06:59 06:59 06:59 Intake Total 1474 Output Total 1050 Balance 424 Weight 78.5 kg General appearance: PRESENT: no acute distress, cooperative, obese, well- developed Head exam: PRESENT: atraumatic, normocephalic Eye exam: PRESENT: conjunctiva pale Mouth exam: PRESENT: neck supple, tongue midline Neck exam: ABSENT: carotid bruit, JVD, lymphadenopathy, thyromegaly Respiratory exam: PRESENT: decreased breath sounds, prolonged expiratory phas, rhonchi, symmetrical, unlabored Cardiovascular exam: PRESENT: RRR, +S1, +S2 Pulses: PRESENT: normal radial pulses GI/Abdominal exam: PRESENT: normal bowel sounds, soft. ABSENT: distended, guarding, mass, organolmegaly, rebound, tenderness Rectal exam: PRESENT: deferred Gentrourinary exam: PRESENT: indwelling catheter Musculoskeletal exam: PRESENT: normal inspection Neurological exam: PRESENT: alert, awake Psychiatric exam: PRESENT: normal mood Skin exam: PRESENT: dry, warm Results Laboratory Results: 12/18/16 05:00 12/18/16 05:00 12/17/16 12/17/16 12/18/16 09:46 10:00 05:00 WBC RBC Hgb Hct MCV MCH MCHC RDW Plt Count Seg Neutrophils % Lymphocytes % Monocytes % Eosinophils % Basophils % Absolute Neutrophils Absolute Lymphocytes Absolute Monocytes Absolute Eosinophils Absolute Basophils Carbonic Acid 0.96 L HCO3/H2CO3 Ratio 17:1 ABG pH 7.34 L ABG pCO2 31.8 L ABG pO2 78.8 L ABG HCO3 16.6 L ABG O2 Saturation 95.1 ABG Base Excess -8.2 FiO2 40% Sodium 136.3 L Potassium 4.8 D Chloride 107 Carbon Dioxide 19 L Anion Gap 10 BUN 23 H Creatinine 0.76 Est GFR ( Amer) > 60 Est GFR (Non-Af Amer) > 60 Glucose 195 H Lactic Acid 5.9 H Calcium 8.7 Magnesium 2.6 H D Total Bilirubin 0.6 AST 16 ALT 23 Alkaline Phosphatase 60 Total Protein 6.1 L Albumin 3.4 L Triglycerides 81 Cholesterol 137.37 LDL Cholesterol Direct 83 VLDL Cholesterol 16.0 HDL Cholesterol 38 L 12/18/16 12/18/16 05:00 06:00 WBC 14.3 H RBC 3.53 L Hgb 10.0 L D Hct 29.8 L MCV 85 MCH 28.2 MCHC 33.4 RDW 13.2 Plt Count 304 Seg Neutrophils % 83.2 H Lymphocytes % 9.8 L Monocytes % 6.9 Eosinophils % 0.0 Basophils % 0.1 Absolute Neutrophils 11.9 H Absolute Lymphocytes 1.4 Absolute Monocytes 1.0 Absolute Eosinophils 0.0 Absolute Basophils 0.0 Carbonic Acid 1.04 L HCO3/H2CO3 Ratio 17:1 ABG pH 7.34 L ABG pCO2 34.7 L ABG pO2 127.2 H ABG HCO3 18.5 L ABG O2 Saturation 98.4 H ABG Base Excess -6.5 FiO2 4 LITERS Sodium Potassium Chloride Carbon Dioxide Anion Gap BUN Creatinine Est GFR ( Amer) Est GFR (Non-Af Amer) Glucose Lactic Acid Calcium Magnesium Total Bilirubin AST ALT Alkaline Phosphatase Total Protein Albumin Triglycerides Cholesterol LDL Cholesterol Direct VLDL Cholesterol HDL Cholesterol 12/17/16 12/17/16 12/17/16 11:20 11:20 17:15 Creatine Kinase 121 141 H CK-MB (CK-2) 1.31 Troponin I 0.026 12/17/16 12/17/16 12/17/16 17:15 23:06 23:06 Creatine Kinase 138 H CK-MB (CK-2) 2.29 2.55 Troponin I 0.017 0.020 Impressions: Chest CT 12/17/16 00:00 IMPRESSION: As seen radiographically, extensive airspace infiltrates. Bilateral effusions. Presumably related to pulmonary edema. Superimposed pneumonia is also in the differential. Chest X-Ray 12/18/16 06:00 IMPRESSION: [id number] mixed interstitial and airspace opacities. Interval improvement. Assessment & Plan - Diagnosis (1) Acute respiratory failure with hypoxia Is this a current diagnosis for this admission?: Yes Plan: Improved significantly (2) Bilateral pneumonia Qualifiers: Pneumonia type: due to unspecified organism Lung location: unspecified part of lung Qualified Code(s): J18.9 - Pneumonia, unspecified organism Is this a current diagnosis for this admission?: Yes Plan: WBC decreased clinically quite improved (3) Sepsis Qualifiers: Sepsis type: sepsis due to unspecified organism Qualified Code(s): A41.9 - Sepsis, unspecified organism Is this a current diagnosis for this admission?: Yes - Time Critical Time spent with patient: 25-34 minutes
[2016-12-18] MEDS: NORMAL SALINE 1000 ML 1,000 ML IV PRN (14:30)
[2016-12-18] MEDS: LOSARTAN POTASSIUM 50 MG TABLET PO SCH (17:48)
[2016-12-18] MEDS: MONTELUKAST SODIUM 10 MG TABLET PO SCH (17:48)
[2016-12-18] MEDS: AMLODIPINE BESYLATE 5 MG TABLET PO SCH (17:48)
--- NOTE | 2016-12-18 20:37 | EKG REPORT ---
SEVERITY:- NORMAL ECG - SINUS RHYTHM : Confirmed by: Rupa Ley 18-Dec-2016 20:35:59
[2016-12-18] MEDS: GUAIFENESIN SYRP 200 MG/10 ML UDC PO PRN (21:31)
[2016-12-18] MEDS: ATORVASTATIN CALCIUM 40 MG TABLET PO SCH (21:32)
[2016-12-19] MEDS: AZTREONAM 1 GM in DEXTROSE 5%-WATER 50 ML IV SCH ×3 (02:00→19:51)
[2016-12-19] MEDS: VANCOMYCIN HCL 1,250 MG in DEXTROSE 5%-WATER 250 ML IV SCH ×2 (03:45→17:00)
[2016-12-19 04:11] LABS: ABSOLUTE BASOPHILS # (AUTO) 0.1 10^3/uL (0.0-0.2); ABSOLUTE LYMPHOCYTES (AUTO) 1.7 10^3/uL (0.5-4.7); ABSOLUTE MONOCYTES (AUTO) 0.7 10^3/uL (0.1-1.4); ABSOLUTE NEUT (AUTO) 12.7 10^3/uL (1.7-8.2); BASOPHILS % (AUTO) 0.5 % (0-2); HEMATOCRIT 31.6 % (36.0-47.0); HEMOGLOBIN 10.4 g/dL (12.0-15.5); HGB HCT DIFFERENCE -0.4; MEAN CORPUSCULAR HGB CONC 32.9 g/dL (32.0-36.0); MEAN CORPUSCULAR VOLUME 85 fl (80-97); MONOCYTES % (AUTO) 4.9 % (3-13); RED CELL DISTRIBUTION WIDTH 13.1 % (11.5-14.0); SEGMENTED NEUTROPHILS % (AUTO) 83.6 % (42-78); WHITE BLOOD COUNT 15.2 10^3/uL (4.0-10.5)
[2016-12-19 04:32] LABS: ALANINE AMINOTRANSFERASE 28 U/L (9-52); ALBUMIN 3.7 g/dL (3.5-5.0); ALKALINE PHOSPHATASE 70 U/L (38-126); ANION GAP 12 (5-19); ASPARTATE AMINO TRANSFERASE 22 U/L (14-36); BILIRUBIN,DIRECT 0.3 mg/dL (0.0-0.4); BILIRUBIN,TOTAL 0.8 mg/dL (0.2-1.3); BLOOD UREA NITROGEN 24 mg/dL (7-20); CALCIUM 8.9 mg/dL (8.4-10.2); CARBON DIOXIDE 20 mmol/L (22-30); CHLORIDE 108 mmol/L (98-107); CREATININE RESULT 0.65 mg/dL (0.52-1.25); GLUCOSE 162 mg/dL (75-110); POTASSIUM 4.8 mmol/L (3.6-5.0); SODIUM 140.4 mmol/L (137-145); TOTAL PROTEIN 6.5 g/dL (6.3-8.2)
[2016-12-19] MEDS: HYDROCORTISONE SOD SUCCINATE INJ/PF 100 MG/2 ML SDV IV SCH ×3 (06:12→21:33)
[2016-12-19] MEDS: GUAIFENESIN SYRP 200 MG/10 ML UDC PO PRN ×3 (06:26→19:10)
[2016-12-19] MEDS: ACETYLCYSTEINE 20% SOLN 800 MG/4 ML VIAL.NEB NEB SCH ×2 (07:57→19:48)
[2016-12-19] MEDS: IPRATROPIUM/ALBUTEROL 0.5-2.5 MG/3 ML AMPUL NEB PRN ×3 (07:57→19:48)
--- NOTE | 2016-12-19 09:06 | PDOC PROGRESS REPORT ---
Subjective Progress Note for:: 12/19/16 Subjective:: Patient is currently doing fair.Patients have episode of tachycardia last night with the coughing episodes. Patient's cough is getting better with the diabetes and Patient also felt short of breath when she coughs but other than that no shortness of the breath no chest pain Patient EKG was normal sinus rhythm but patients came initially the EKG was some A. fib Patient's denied any fever Physical Exam Vital Signs: Temp Pulse Resp BP Pulse Ox 97.9 F 102 H 20 133/73 H 97 12/19/16 07:49 12/19/16 08:00 12/19/16 08:00 12/19/16 07:49 12/19/16 08:00 Intake & Output 12/18/16 12/19/16 12/20/16 06:59 06:59 06:59 Intake Total 1474 1830 Output Total 1050 3000 Balance 424 -1170 Weight 78.5 kg 78.1 kg General appearance: PRESENT: no acute distress, well-developed, well-nourished Head exam: PRESENT: atraumatic, normocephalic Eye exam: PRESENT: conjunctiva pink, EOMI, PERRLA. ABSENT: scleral icterus Ear exam: PRESENT: normal external ear exam Mouth exam: PRESENT: moist, tongue midline Neck exam: PRESENT: full ROM. ABSENT: carotid bruit, JVD, lymphadenopathy, thyromegaly Respiratory exam: PRESENT: clear to auscultation kal Cardiovascular exam: PRESENT: RRR. ABSENT: diastolic murmur, rubs, systolic murmur Pulses: PRESENT: normal dorsalis pedis pul, +2 pedal pulses bilateral Vascular exam: PRESENT: normal capillary refill GI/Abdominal exam: PRESENT: normal bowel sounds, soft. ABSENT: distended, guarding, mass, organolmegaly, rebound, tenderness Rectal exam: PRESENT: deferred Neurological exam: PRESENT: alert, awake, oriented to person, oriented to place , oriented to time, oriented to situation, CN II-XII grossly intact. ABSENT: motor sensory deficit Psychiatric exam: PRESENT: appropriate affect, normal mood. ABSENT: homicidal ideation, suicidal ideation Skin exam: PRESENT: dry, intact, warm. ABSENT: cyanosis, rash Results Laboratory Results: 12/19/16 04:04 12/19/16 04:04 12/19/16 12/19/16 04:04 04:04 WBC 15.2 H RBC 3.70 L Hgb 10.4 L Hct 31.6 L MCV 85 MCH 28.0 MCHC 32.9 RDW 13.1 Plt Count 324 Seg Neutrophils % 83.6 H Lymphocytes % 11.0 L Monocytes % 4.9 Eosinophils % 0.0 Basophils % 0.5 Absolute Neutrophils 12.7 H Absolute Lymphocytes 1.7 Absolute Monocytes 0.7 Absolute Eosinophils 0.0 Absolute Basophils 0.1 Sodium 140.4 Potassium 4.8 Chloride 108 H Carbon Dioxide 20 L Anion Gap 12 BUN 24 H Creatinine 0.65 Est GFR ( Amer) > 60 Est GFR (Non-Af Amer) > 60 Glucose 162 H Calcium 8.9 Total Bilirubin 0.8 AST 22 ALT 28 Alkaline Phosphatase 70 Total Protein 6.5 Albumin 3.7 12/17/16 12/17/16 12/17/16 11:20 11:20 17:15 Creatine Kinase 121 141 H CK-MB (CK-2) 1.31 Troponin I 0.026 12/17/16 12/17/16 12/17/16 17:15 23:06 23:06 Creatine Kinase 138 H CK-MB (CK-2) 2.29 2.55 Troponin I 0.017 0.020 Impressions: Chest CT 12/17/16 00:00 IMPRESSION: As seen radiographically, extensive airspace infiltrates. Bilateral effusions. Presumably related to pulmonary edema. Superimposed pneumonia is also in the differential. Chest X-Ray 12/18/16 06:00 IMPRESSION: [id number] mixed interstitial and airspace opacities. Interval improvement. Chest Ultrasound 12/18/16 11:37 IMPRESSION: Very small bilateral pleural effusions. No thoracentesis performed Assessment & Plan - Diagnosis (1) Acute respiratory failure with hypoxia Is this a current diagnosis for this admission?: Yes Plan: Currently all stable with the nasal cannula 3 L we will discuss with the pulmonary may be patients need a some CT angiogram to rule out other etiology are not (2) Bilateral pneumonia Qualifiers: Pneumonia type: due to unspecified organism Lung location: unspecified part of lung Qualified Code(s): J18.9 - Pneumonia, unspecified organism Is this a current diagnosis for this admission?: Yes Plan: Continues to IV antibiotic (3) Diabetes mellitus Qualifiers: Diabetes mellitus type: type 2 Diabetes mellitus complication status: without complication Diabetes mellitus director long term care insulin use: without penitentiary use Qualified Code(s): E11.9 - Type 2 diabetes mellitus without complications Is this a current diagnosis for this admission?: Yes Plan: Continues a sliding scale with the [facility] protocol (4) Hypertension Is this a current diagnosis for this admission?: Yes Plan: Currently stable (5) Pleural effusion Is this a current diagnosis for this admission?: Yes Plan: Patient ultrasound of the chest did not show any pleural fluid so did not go for thoracocentesis - Time Time Spent with patient: 15-24 minutes Medications reviewed and adjusted accordingly: Yes Anticipated discharge: Home Within: Other - Inpatient Certification Medical Necessity: Need For IV Fluids, Need for IV Antibiotics Post Hospital Care: D/C Etiquette Coach Documentation - Plan Summary Plan Summary: We will order the echocardiograms with this initial presentations with the EKG was abnormal as per discussed with the cardiology suggests patients might need a event monitor on the discharge We discussed with the pulmonary for the CT scan Continues IV antibiotic Discussed with the nurse in ICU taking care of the patient This with the patient about the all the plan
[2016-12-19 09:14] LABS: ARTERIAL BLOOD BASE EXCESS -5.8 mmol/L; ARTERIAL BLOOD O2 SATURATION 96.1 % (94-98)
[2016-12-19] MEDS: METOPROLOL TARTRATE 50 MG TABLET PO SCH ×2 (09:21→21:34)
[2016-12-19] MEDS: METFORMIN HCL 500 MG TABLET PO SCH (09:22)
[2016-12-19] MEDS: LEVOFLOXACIN 500 MG/D5W RTU 500 MG/100 ML RTUPB IV SCH (09:24)
[2016-12-19] MEDS: ENOXAPARIN SODIUM INJ 40 MG/0.4 ML DISP.SYRIN SUBCUT SCH (09:24)
[2016-12-19] MEDS: BENZONATATE 100 MG CAPSULE PO PRN ×2 (11:21→17:00)
[2016-12-19] MEDS: INSULIN LISPRO 100 UNIT/ML 3 ML VIAL SUBCUT PRN (11:21)
[2016-12-19] MEDS ORDERED: NORMAL SALINE 500 ML IV PRN ×2 (15:24→15:25)
--- NOTE | 2016-12-19 15:53 | PDOC PROGRESS REPORT ---
Subjective Progress Note for:: 12/19/16 Subjective:: I am feeling much better Physical Exam Vital Signs: Temp Pulse Resp BP Pulse Ox 97.9 F 102 H 20 133/73 H 97 12/19/16 07:49 12/19/16 08:00 12/19/16 08:00 12/19/16 07:49 12/19/16 08:00 Intake & Output 12/18/16 12/19/16 12/20/16 06:59 06:59 06:59 Intake Total 1474 1830 Output Total 1050 3000 Balance 424 -1170 Weight 78.5 kg 78.1 kg General appearance: PRESENT: no acute distress, cooperative, disheveled, obese, well-developed Head exam: PRESENT: atraumatic, normocephalic Eye exam: PRESENT: conjunctiva pale, EOMI Mouth exam: PRESENT: moist, neck supple, tongue midline Neck exam: ABSENT: carotid bruit, JVD, lymphadenopathy, thyromegaly Respiratory exam: PRESENT: decreased breath sounds, prolonged expiratory phas, rales, rhonchi, symmetrical. ABSENT: retraction, stridor, tachypnea, unlabored Cardiovascular exam: PRESENT: RRR, +S1, +S2. ABSENT: irregular rhythm Pulses: PRESENT: normal radial pulses GI/Abdominal exam: PRESENT: normal bowel sounds, soft. ABSENT: distended, guarding, mass, organolmegaly, rebound, tenderness Rectal exam: PRESENT: deferred Gentrourinary exam: PRESENT: indwelling catheter Musculoskeletal exam: PRESENT: normal inspection Neurological exam: PRESENT: alert, awake Psychiatric exam: PRESENT: normal mood Skin exam: PRESENT: dry, warm Results Laboratory Results: 12/19/16 04:04 12/19/16 04:04 12/19/16 12/19/16 04:04 04:04 WBC 15.2 H RBC 3.70 L Hgb 10.4 L Hct 31.6 L MCV 85 MCH 28.0 MCHC 32.9 RDW 13.1 Plt Count 324 Seg Neutrophils % 83.6 H Lymphocytes % 11.0 L Monocytes % 4.9 Eosinophils % 0.0 Basophils % 0.5 Absolute Neutrophils 12.7 H Absolute Lymphocytes 1.7 Absolute Monocytes 0.7 Absolute Eosinophils 0.0 Absolute Basophils 0.1 Sodium 140.4 Potassium 4.8 Chloride 108 H Carbon Dioxide 20 L Anion Gap 12 BUN 24 H Creatinine 0.65 Est GFR ( Amer) > 60 Est GFR (Non-Af Amer) > 60 Glucose 162 H Calcium 8.9 Total Bilirubin 0.8 AST 22 ALT 28 Alkaline Phosphatase 70 Total Protein 6.5 Albumin 3.7 12/17/16 12/17/16 12/17/16 11:20 11:20 17:15 Creatine Kinase 121 141 H CK-MB (CK-2) 1.31 Troponin I 0.026 12/17/16 12/17/16 12/17/16 17:15 23:06 23:06 Creatine Kinase 138 H CK-MB (CK-2) 2.29 2.55 Troponin I 0.017 0.020 Impressions: Chest CT 12/17/16 00:00 IMPRESSION: As seen radiographically, extensive airspace infiltrates. Bilateral effusions. Presumably related to pulmonary edema. Superimposed pneumonia is also in the differential. Chest X-Ray 12/18/16 06:00 IMPRESSION: [id number] mixed interstitial and airspace opacities. Interval improvement. Chest Ultrasound 12/18/16 11:37 IMPRESSION: Very small bilateral pleural effusions. No thoracentesis performed Assessment & Plan - Diagnosis (1) Acute respiratory failure with hypoxia Is this a current diagnosis for this admission?: Yes Plan: Overall improving however she has had 2 episodes of tachypnea with transient desaturations associated with tachycardia therefore we will proceed with a CTA to rule out PE (2) Bilateral pneumonia Qualifiers: Pneumonia type: due to unspecified organism Lung location: unspecified part of lung Qualified Code(s): J18.9 - Pneumonia, unspecified organism Is this a current diagnosis for this admission?: Yes (3) Sepsis Qualifiers: Sepsis type: sepsis due to unspecified organism Qualified Code(s): A41.9 - Sepsis, unspecified organism Is this a current diagnosis for this admission?: Yes - Time Critical Time spent with patient: 35 or more minutes - 55 minutes - Plan Summary Plan Summary: Patient has had multiple episodes of SVT with cough on one occasion with hemoptysis she had a negative CTA but is still coughing green phlegm will initiate Cardizem IV bolus then a drip consult cardiology initiate chest percussion and postural drainage to augment Mucomyst
--- NOTE | 2016-12-19 16:43 | RADIOLOGY REPORT (SQ) ---
EXAM DESCRIPTION: CTA CHEST COMPLETED DATE/TIME: 12/19/2016 4:12 pm REASON FOR STUDY: r/o PE COMPARISON: 12/17/2016 TECHNIQUE: CT scan of the chest performed using helical scanning technique with dynamic intravenous contrast injection. Images reviewed with lung, soft tissue and bone windows. Reconstructed coronal and sagittal MPR images reviewed. Additional 3 dimensional post-processing performed to develop Maximal Intensity Projection images (AK P). All images stored on PACS. All CT scanners at this facility use dose modulation, iterative reconstruction, and/or weight based d osing when appropriate to reduce radiation dose to as low as reasonably achievable (ALARA). [facility]: Dose Right [facility]: CareDose [facility]: Dose Right [facility]: Teradose 4D [facility]: ZikBit CONTRAST TYPE AND DOSE: contrast/concentration: Isovue 370.00 mg/ml; Total Contrast Delivered: 65.1 ml; Total Saline Delivered: 110.0 ml Contrast bolus optimized for the pulmonary arteries. Not diagnostic for the aorta. RENAL FUNCTION: Not recorded RADIATION DOSE: Up-to-date CT equipment and radiation dose reduction techniques were employed. CTDIv ol: 13.2 - 14.1 mGy. DLP: 464 mGy-cm. . LIMITATIONS: None. FINDINGS: LUNGS AND PLEURA: Fairly dense infiltrates are seen in both lungs with air bronchograms, p articularly in the right upper lobe, the upper segments of the right lower lobe, and in the left selvin hilar region and lower lobe. Moderate pleural effusions are present bilaterally. AORTA AND GREAT VESSELS: No aneurysm. Contrast bolus not optimized for the aorta. HEART: No pericardial effusion. Moderate coronary artery calcifications. PULMONARY ARTERIES: No emboli visualized in the main pulmonary arteries or the segmental branches. HILAR AND MEDIASTINAL STRUCTURES: No identified masses or abnormal nodes. HARDWARE: None in the chest. UPPER ABDOMEN: No significant findings. Limited exam. THYROID AND OTHER SOFT TISSUES: No masses. No adenopathy. BONES: No acute or significant finding. 3D MIPS: Confirm above findings. OTHER: No other significant finding. IMPRESSION: 1. There is no evidence of pulmonary embolus. 2. Multicentric pneumonia. COMMENT: Quality ID # [id number]: Final reports with documentation of one or more dose reduction techniques (e.g., Automated exposure control, adjustment of the mA and/or kV according to patient size, use of iterative reconstruction technique) TECHNICAL DOCUMENTATION: JOB ID: [id number] [employer]- All Rights Reserved
[2016-12-19] MEDS ORDERED: DILTIAZEM HCL/D5W 125 MG/125 ML RTUINJ IV ONE (16:48)
[2016-12-19] MEDS ORDERED: DILTIAZEM HCL INJ 25 MG/5 ML VIAL ONE (16:48)
[2016-12-19] MEDS ORDERED: DILTIAZEM HCL/D5W 125 MG/125 ML RTUINJ IV PRN (16:52)
[2016-12-19] MEDS ORDERED: DILTIAZEM HCL INJ 25 MG/5 ML VIAL IV ONE (17:00)
[2016-12-19] MEDS: NORMAL SALINE 1000 ML 1,000 ML IV PRN ×2 (17:01→19:55)
[2016-12-19 17:30] LABS: ALANINE AMINOTRANSFERASE 35 U/L (9-52); ALBUMIN 3.6 g/dL (3.5-5.0); ALKALINE PHOSPHATASE 83 U/L (38-126); ANION GAP 13 (5-19); ASPARTATE AMINO TRANSFERASE 24 U/L (14-36); BILIRUBIN,DIRECT 0.3 mg/dL (0.0-0.4); BILIRUBIN,TOTAL 0.6 mg/dL (0.2-1.3); BLOOD UREA NITROGEN 21 mg/dL (7-20); CALCIUM 8.6 mg/dL (8.4-10.2); CARBON DIOXIDE 20 mmol/L (22-30); CHLORIDE 108 mmol/L (98-107); CREATINE KINASE 125 U/L (30-135); CREATININE RESULT 0.86 mg/dL (0.52-1.25); GLUCOSE 200 mg/dL (75-110); MAGNESIUM 1.8 mg/dL (1.6-2.3); POTASSIUM 4.3 mmol/L (3.6-5.0); SODIUM 140.9 mmol/L (137-145); TOTAL PROTEIN 6.4 g/dL (6.3-8.2)
[2016-12-19 17:42] LABS: CREATINE KINASE MB 1.28 ng/mL (<4.55); TROPONIN I 0.061 ng/mL
[2016-12-19] MEDS: LOSARTAN POTASSIUM 50 MG TABLET PO SCH (19:09)
[2016-12-19] MEDS: AMLODIPINE BESYLATE 5 MG TABLET PO SCH (19:10)
[2016-12-19] MEDS: MONTELUKAST SODIUM 10 MG TABLET PO SCH (19:10)
[2016-12-19] MEDS: HYDROCODONE BIT/HOMATROPINE 5-1.5 MG TABLET PO PRN (20:25)
[2016-12-19] MEDS: ATORVASTATIN CALCIUM 40 MG TABLET PO SCH (21:34)
[2016-12-20] MEDS: AZTREONAM 1 GM in DEXTROSE 5%-WATER 50 ML IV SCH ×3 (01:52→17:12)
[2016-12-20] MEDS: VANCOMYCIN HCL 1,250 MG in DEXTROSE 5%-WATER 250 ML IV SCH ×3 (02:27→18:06)
[2016-12-20 04:04] LABS: ABSOLUTE LYMPHOCYTES (AUTO) 1.5 10^3/uL (0.5-4.7); ABSOLUTE MONOCYTES (AUTO) 0.6 10^3/uL (0.1-1.4); ABSOLUTE NEUT (AUTO) 9.6 10^3/uL (1.7-8.2); BASOPHILS % (AUTO) 0.2 % (0-2); HEMOGLOBIN 10.1 g/dL (12.0-15.5); HGB HCT DIFFERENCE -0.7; LYMPHOCYTES % (AUTO) 12.9 % (13-45); MEAN CORPUSCULAR HEMOGLOBIN 27.8 pg (27.0-33.4); MEAN CORPUSCULAR HGB CONC 32.6 g/dL (32.0-36.0); MEAN CORPUSCULAR VOLUME 85 fl (80-97); MONOCYTES % (AUTO) 5.4 % (3-13); RED BLOOD COUNT 3.63 10^6/uL (3.72-5.28); RED CELL DISTRIBUTION WIDTH 13.3 % (11.5-14.0); SEGMENTED NEUTROPHILS % (AUTO) 81.5 % (42-78); WHITE BLOOD COUNT 11.8 10^3/uL (4.0-10.5)
[2016-12-20 04:14] LABS: ALANINE AMINOTRANSFERASE 32 U/L (9-52); ALBUMIN 3.1 g/dL (3.5-5.0); ALKALINE PHOSPHATASE 65 U/L (38-126); ANION GAP 9 (5-19); ASPARTATE AMINO TRANSFERASE 19 U/L (14-36); BILIRUBIN,DIRECT 0.3 mg/dL (0.0-0.4); BILIRUBIN,TOTAL 0.8 mg/dL (0.2-1.3); BLOOD UREA NITROGEN 18 mg/dL (7-20); CALCIUM 8.4 mg/dL (8.4-10.2); CARBON DIOXIDE 23 mmol/L (22-30); CHLORIDE 108 mmol/L (98-107); CREATININE RESULT 0.61 mg/dL (0.52-1.25); GLUCOSE 237 mg/dL (75-110); POTASSIUM 4.3 mmol/L (3.6-5.0); SODIUM 139.9 mmol/L (137-145); TOTAL PROTEIN 5.6 g/dL (6.3-8.2)
[2016-12-20] MEDS: HYDROCORTISONE SOD SUCCINATE INJ/PF 100 MG/2 ML SDV IV SCH ×3 (05:42→22:24)
[2016-12-20] MEDS: NORMAL SALINE 1000 ML 1,000 ML IV PRN ×2 (07:58→22:24)
[2016-12-20] MEDS: INSULIN LISPRO 100 UNIT/ML 3 ML VIAL SUBCUT PRN ×3 (07:58→18:09)
[2016-12-20] MEDS: HYDROCODONE BIT/HOMATROPINE 5-1.5 MG TABLET PO PRN ×2 (09:12→16:53)
[2016-12-20] MEDS: LEVOFLOXACIN 500 MG/D5W RTU 500 MG/100 ML RTUPB IV SCH (09:13)
[2016-12-20] MEDS: BENZONATATE 100 MG CAPSULE PO PRN ×2 (09:13→17:53)
[2016-12-20] MEDS: METOPROLOL TARTRATE 50 MG TABLET PO SCH ×2 (09:13→22:24)
[2016-12-20] MEDS: ENOXAPARIN SODIUM INJ 40 MG/0.4 ML DISP.SYRIN SUBCUT SCH (09:14)
[2016-12-20] MEDS: LEVALBUTEROL HCL NEB 1.25 MG/3 ML AMPUL NEB PRN ×3 (09:24→20:13)
[2016-12-20] MEDS: ACETYLCYSTEINE 20% SOLN 800 MG/4 ML VIAL.NEB NEB SCH ×2 (09:25→20:12)
--- NOTE | 2016-12-20 09:27 | RADIOLOGY REPORT (SQ) ---
EXAM DESCRIPTION: CHEST SINGLE VIEW COMPLETED DATE/TIME: 12/20/2016 9:14 am REASON FOR STUDY: resp failure COMPARISON: Chest films 03/17/2013, 12/17/2016, 12/18/2016 CT angio chest 12/19/2016 EXAM PARAMETERS: NUMBER OF VIEWS: One view. TECHNIQUE: Single frontal radiographic view of the chest acquired. RADIATION DOSE: NA LIMITATIONS: None. FINDINGS: LUNGS AND PLEURA: Multifocal airspace disease persists, most pronounced in the right upper lobe, edema versus pneumonia. This is similar compared to CT angio chest 12/19/2016. Few Jose David lines at both bases indicating interstitial fluid. No gross pleural effusions or pneumothorax. MEDIASTINUM AND HILAR STRUCTURES: No masses. Contour normal. HEART AND VASCULAR STRUCTURES: Heart normal in size. Normal vasculature. BONES: No acute findings. HARDWARE: None in the chest. OTHER: No other significant finding. IMPRESSION: Persistent multifocal airspace disease, edema versus pneumonia. TECHNICAL DOCUMENTATION: JOB ID: [id number]
--- NOTE | 2016-12-20 10:30 | PDOC PROGRESS REPORT ---
Subjective Progress Note for:: 12/20/16 Subjective:: Patient is currently doing same. Patient was CT angiogram was done yesterday which is negative for any pulmonary embolismPatient still heart rate goes up when she moves around patient was put on a Cardizem drip yesterdayPatient still have a coughing episodes Patient's denied any chest pain and denied any shortness of the breath while resting Physical Exam Vital Signs: Temp Pulse Resp BP Pulse Ox 97.9 F 99 28 H 136/82 H 100 12/20/16 07:36 12/20/16 09:25 12/20/16 09:25 12/20/16 08:01 12/20/16 09:25 Intake & Output 12/19/16 12/20/16 12/21/16 06:59 06:59 06:59 Intake Total 1830 3075 Output Total 3000 1100 Balance -1170 1975 Weight 78.1 kg 79.8 kg General appearance: PRESENT: no acute distress, well-developed, well-nourished Head exam: PRESENT: atraumatic, normocephalic Eye exam: PRESENT: conjunctiva pink, EOMI, PERRLA. ABSENT: scleral icterus Ear exam: PRESENT: normal external ear exam Mouth exam: PRESENT: moist, tongue midline Neck exam: PRESENT: full ROM. ABSENT: carotid bruit, JVD, lymphadenopathy, thyromegaly Respiratory exam: PRESENT: clear to auscultation kal Cardiovascular exam: PRESENT: RRR, tachycardia. ABSENT: diastolic murmur, rubs , systolic murmur Pulses: PRESENT: normal dorsalis pedis pul, +2 pedal pulses bilateral Vascular exam: PRESENT: normal capillary refill GI/Abdominal exam: PRESENT: normal bowel sounds, soft. ABSENT: distended, guarding, mass, organolmegaly, rebound, tenderness Rectal exam: PRESENT: deferred Neurological exam: PRESENT: alert, awake, oriented to person, oriented to place , oriented to time, oriented to situation, CN II-XII grossly intact. ABSENT: motor sensory deficit Psychiatric exam: PRESENT: appropriate affect, normal mood. ABSENT: homicidal ideation, suicidal ideation Skin exam: PRESENT: dry, intact, warm. ABSENT: cyanosis, rash Results Laboratory Results: 12/20/16 03:37 12/20/16 03:37 12/19/16 12/19/16 12/20/16 17:07 17:07 03:37 WBC 11.8 H RBC 3.63 L Hgb 10.1 L Hct 31.0 L MCV 85 MCH 27.8 MCHC 32.6 RDW 13.3 Plt Count 312 Seg Neutrophils % 81.5 H Lymphocytes % 12.9 L Monocytes % 5.4 Eosinophils % 0.0 Basophils % 0.2 Absolute Neutrophils 9.6 H Absolute Lymphocytes 1.5 Absolute Monocytes 0.6 Absolute Eosinophils 0.0 Absolute Basophils 0.0 Sodium 140.9 Potassium 4.3 Chloride 108 H Carbon Dioxide 20 L Anion Gap 13 BUN 21 H Creatinine 0.86 Est GFR ( Amer) > 60 Est GFR (Non-Af Amer) > 60 Glucose 200 H Calcium 8.6 Magnesium 1.8 Total Bilirubin 0.6 AST 24 ALT 35 Alkaline Phosphatase 83 Total Protein 6.4 Albumin 3.6 Serum HCG, Qual NEGATIVE 12/20/16 03:37 WBC RBC Hgb Hct MCV MCH MCHC RDW Plt Count Seg Neutrophils % Lymphocytes % Monocytes % Eosinophils % Basophils % Absolute Neutrophils Absolute Lymphocytes Absolute Monocytes Absolute Eosinophils Absolute Basophils Sodium 139.9 Potassium 4.3 Chloride 108 H Carbon Dioxide 23 Anion Gap 9 BUN 18 Creatinine 0.61 Est GFR ( Amer) > 60 Est GFR (Non-Af Amer) > 60 Glucose 237 H Calcium 8.4 Magnesium Total Bilirubin 0.8 AST 19 ALT 32 Alkaline Phosphatase 65 Total Protein 5.6 L Albumin 3.1 L Serum HCG, Qual 12/17/16 12/17/16 12/17/16 11:20 11:20 17:15 Creatine Kinase 121 141 H CK-MB (CK-2) 1.31 Troponin I 0.026 12/17/16 12/17/16 12/17/16 17:15 23:06 23:06 Creatine Kinase 138 H CK-MB (CK-2) 2.29 2.55 Troponin I 0.017 0.020 12/19/16 12/19/16 17:07 17:07 Creatine Kinase 125 CK-MB (CK-2) 1.28 Troponin I 0.061 Impressions: Chest CT 12/17/16 00:00 IMPRESSION: As seen radiographically, extensive airspace infiltrates. Bilateral effusions. Presumably related to pulmonary edema. Superimposed pneumonia is also in the differential. Chest Ultrasound 12/18/16 11:37 IMPRESSION: Very small bilateral pleural effusions. No thoracentesis performed Chest/Abdomen CTA 12/19/16 00:00 IMPRESSION: 1. There is no evidence of pulmonary embolus. 2. Multicentric pneumonia. Chest X-Ray 12/20/16 00:00 IMPRESSION: Persistent multifocal airspace disease, edema versus pneumonia. Assessment & Plan - Diagnosis (1) Acute respiratory failure with hypoxia Is this a current diagnosis for this admission?: Yes Plan: Currently all stable with the nasal cannula 3 L we will discuss with the pulmonary may be patients need a some CT angiogram to rule out other etiology are not (2) Bilateral pneumonia Qualifiers: Pneumonia type: due to unspecified organism Lung location: unspecified part of lung Qualified Code(s): J18.9 - Pneumonia, unspecified organism Is this a current diagnosis for this admission?: Yes Plan: Continues to IV antibiotic (3) Diabetes mellitus Qualifiers: Diabetes mellitus type: type 2 Diabetes mellitus complication status: without complication Diabetes mellitus senior living insulin use: without senior living use Qualified Code(s): E11.9 - Type 2 diabetes mellitus without complications Is this a current diagnosis for this admission?: Yes Plan: Continues a sliding scale with the [facility] protocol (4) Hypertension Is this a current diagnosis for this admission?: Yes Plan: Currently stable (5) Pleural effusion Is this a current diagnosis for this admission?: Yes (6) Sinus tachycardia Is this a current diagnosis for this admission?: Yes Plan: Continues to Cardizem drip we will repeat the cardiac enzymes and EKG order the TSHEcho is already done waiting for the reportCardiology consult was placed - Time Time Spent with patient: 15-24 minutes Medications reviewed and adjusted accordingly: Yes Anticipated discharge: Home Within: Other - Inpatient Certification Medical Necessity: Need For IV Fluids, Need for IV Antibiotics Post Hospital Care: D/C Nuclear Security Officer Documentation - Plan Summary Plan Summary: We will waiting for the echo report will DC the DuoNeb nebulizer as per discussed with Dr. Sylvain Raines they can help for the tachycardia and added them Xopenex as needed Discussed with the Dr. Ambrose the patient has 1 and other family member in the ICU regarding the patient's current conditions Call the human resources operations director Dr. Waite is 6 unable to come and see the patient's today Call Dr. daniels other human resources operations director may be able to read the echo but not able to see the patient We will repeat the EKG and cardiac enzyme and do some changes and see whether that able to make any difference If his persistent tachycardia need a cardiology consult and if is unable to get it here will be transferred to a tertiary center discussed with the Dr. Ambrose the patient has been suggested srinivas
[2016-12-20 11:10] LABS: CREATINE KINASE MB 1.37 ng/mL (<4.55); TROPONIN I 0.034 ng/mL
--- NOTE | 2016-12-20 11:10 | PDOC PROGRESS REPORT ---
Subjective Progress Note for:: 12/20/16 Subjective:: Patient without complaints Physical Exam Vital Signs: Temp Pulse Resp BP Pulse Ox 97.9 F 93 26 H 140/89 H 100 12/20/16 07:36 12/20/16 07:36 12/20/16 07:36 12/20/16 07:36 12/20/16 07:36 Intake & Output 12/19/16 12/20/16 12/21/16 06:59 06:59 06:59 Intake Total 1830 3075 Output Total 3000 1100 Balance -1170 1975 Weight 78.1 kg 79.8 kg General appearance: PRESENT: no acute distress, cooperative, disheveled, obese, well-developed Head exam: PRESENT: atraumatic, normocephalic Eye exam: PRESENT: conjunctiva pale, EOMI Mouth exam: PRESENT: dry mucosa, neck supple, tongue midline Neck exam: ABSENT: carotid bruit, JVD, lymphadenopathy, thyromegaly Respiratory exam: PRESENT: decreased breath sounds, rales, rhonchi, symmetrical , unlabored, wheezes Cardiovascular exam: PRESENT: RRR, +S1, +S2, tachycardia Pulses: PRESENT: normal femoral pulses GI/Abdominal exam: PRESENT: normal bowel sounds, soft. ABSENT: distended, guarding, mass, organolmegaly, rebound, tenderness Rectal exam: PRESENT: deferred Gentrourinary exam: PRESENT: indwelling catheter Musculoskeletal exam: PRESENT: normal inspection Neurological exam: PRESENT: alert, awake Psychiatric exam: PRESENT: normal mood Skin exam: PRESENT: dry, warm Results Laboratory Results: 12/20/16 03:37 12/20/16 03:37 12/19/16 12/19/16 12/19/16 09:05 17:07 17:07 WBC RBC Hgb Hct MCV MCH MCHC RDW Plt Count Seg Neutrophils % Lymphocytes % Monocytes % Eosinophils % Basophils % Absolute Neutrophils Absolute Lymphocytes Absolute Monocytes Absolute Eosinophils Absolute Basophils Carbonic Acid 0.96 L HCO3/H2CO3 Ratio 19:1 ABG pH 7.38 ABG pCO2 32.0 L ABG pO2 82.5 ABG HCO3 18.4 L ABG O2 Saturation 96.1 ABG Base Excess -5.8 FiO2 3L Sodium 140.9 Potassium 4.3 Chloride 108 H Carbon Dioxide 20 L Anion Gap 13 BUN 21 H Creatinine 0.86 Est GFR ( Amer) > 60 Est GFR (Non-Af Amer) > 60 Glucose 200 H Calcium 8.6 Magnesium 1.8 Total Bilirubin 0.6 AST 24 ALT 35 Alkaline Phosphatase 83 Total Protein 6.4 Albumin 3.6 Serum HCG, Qual NEGATIVE 12/20/16 12/20/16 03:37 03:37 WBC 11.8 H RBC 3.63 L Hgb 10.1 L Hct 31.0 L MCV 85 MCH 27.8 MCHC 32.6 RDW 13.3 Plt Count 312 Seg Neutrophils % 81.5 H Lymphocytes % 12.9 L Monocytes % 5.4 Eosinophils % 0.0 Basophils % 0.2 Absolute Neutrophils 9.6 H Absolute Lymphocytes 1.5 Absolute Monocytes 0.6 Absolute Eosinophils 0.0 Absolute Basophils 0.0 Carbonic Acid HCO3/H2CO3 Ratio ABG pH ABG pCO2 ABG pO2 ABG HCO3 ABG O2 Saturation ABG Base Excess FiO2 Sodium 139.9 Potassium 4.3 Chloride 108 H Carbon Dioxide 23 Anion Gap 9 BUN 18 Creatinine 0.61 Est GFR ( Amer) > 60 Est GFR (Non-Af Amer) > 60 Glucose 237 H Calcium 8.4 Magnesium Total Bilirubin 0.8 AST 19 ALT 32 Alkaline Phosphatase 65 Total Protein 5.6 L Albumin 3.1 L Serum HCG, Qual 12/17/16 12/17/16 12/17/16 11:20 11:20 17:15 Creatine Kinase 121 141 H CK-MB (CK-2) 1.31 Troponin I 0.026 12/17/16 12/17/16 12/17/16 17:15 23:06 23:06 Creatine Kinase 138 H CK-MB (CK-2) 2.29 2.55 Troponin I 0.017 0.020 12/19/16 12/19/16 17:07 17:07 Creatine Kinase 125 CK-MB (CK-2) 1.28 Troponin I 0.061 Impressions: Chest CT 12/17/16 00:00 IMPRESSION: As seen radiographically, extensive airspace infiltrates. Bilateral effusions. Presumably related to pulmonary edema. Superimposed pneumonia is also in the differential. Chest X-Ray 12/18/16 06:00 IMPRESSION: [id number] mixed interstitial and airspace opacities. Interval improvement. Chest Ultrasound 12/18/16 11:37 IMPRESSION: Very small bilateral pleural effusions. No thoracentesis performed Chest/Abdomen CTA 12/19/16 00:00 IMPRESSION: 1. There is no evidence of pulmonary embolus. 2. Multicentric pneumonia. Assessment & Plan - Diagnosis (1) Acute respiratory failure with hypoxia Is this a current diagnosis for this admission?: Yes Plan: Overall improving no longer requiring BiPAP did have 2 episodes of tachypnea associated with SVT but did require BiPAP subsequent CTA did not reveal a PE and after discussion with her primary care physician we will discontinue her albuterol and put her on Xopenex (2) Bilateral pneumonia Qualifiers: Pneumonia type: due to unspecified organism Lung location: unspecified part of lung Qualified Code(s): J18.9 - Pneumonia, unspecified organism Is this a current diagnosis for this admission?: Yes (3) Sepsis Qualifiers: Sepsis type: sepsis due to unspecified organism Qualified Code(s): A41.9 - Sepsis, unspecified organism Is this a current diagnosis for this admission?: Yes - Time Critical Time spent with patient: 35 or more minutes
--- NOTE | 2016-12-20 12:31 | PDOC TRANSFER SUMMARY ---
General Admission Date/PCP: 12/17/16 06:37 HONEY GONZALEZ MD Transfer Date: 12/20/16 Accepting Facility: [facility] Resuscitation Status: Full Code - Transfer Diagnosis (1) Acute respiratory failure with hypoxia Is this a current diagnosis for this admission?: Yes Diagnosis Summary: stable (2) Bilateral pneumonia Is this a current diagnosis for this admission?: Yes Diagnosis Summary: Continues to IV antibiotic (3) Diabetes mellitus Is this a current diagnosis for this admission?: Yes Diagnosis Summary: Continue sliding scale (4) Hypertension Is this a current diagnosis for this admission?: Yes Diagnosis Summary: Currently stable (5) Pleural effusion Is this a current diagnosis for this admission?: Yes (6) Sinus tachycardia Is this a current diagnosis for this admission?: Yes Diagnosis Summary: With a supraventricular tachycardia currently on a Cardizem drip referred to the variety saw operator at [facility] for further evaluations - Transfer Medications Home Medications: Amlodipine Besylate 5 mg PO QPM 12/17/16 Atorvastatin Calcium 40 mg PO QPM 12/17/16 Fluticasone Propionate [Flonase Nasal [place] 50 Mcg/[place] 16 gm] 1 spray IH DAILY 12/17/16 Losartan Potassium 100 mg PO QPM 12/17/16 Metformin HCl [Glucophage] 1,000 mg PO Q12 12/17/16 Metoprolol Tartrate [Lopressor] 50 mg PO Q12 12/17/16 Montelukast Sodium 10 mg PO QPM 12/17/16 Transfer Medications: Current Medications Acetylcysteine (Mucomist 20% Soln 800 Mg/4 Ml) 600 mg NEB RTBID JOLANTA Stop: 01/16/17 19:59 Last Admin: 12/20/16 09:25 Dose: 600 mg Amlodipine Besylate (Norvasc 5 Mg Tablet) 5 mg PO QPM JOLANTA Stop: 01/16/17 17:59 Last Admin: 12/19/16 19:10 Dose: 5 mg Atorvastatin Calcium (Lipitor 40 Mg Tablet) 40 mg PO QHS JOLANTA Stop: 01/16/17 21:59 Last Admin: 12/19/16 21:34 Dose: 40 mg Benzonatate (Tessalon Perles 100 Mg Capsule) 100 mg PO TIDP PRN PRN Reason: COUGH Stop: 01/18/17 09:47 Last Admin: 12/20/16 09:13 Dose: 100 mg Dextrose (Dextrose Inj 50% Syringe (25 Gm/50 Ml)) 25 gm IV PRN PRN PRN Reason: Protocol Stop: 01/16/17 06:44 Dextrose (Dextrose Inj 50% Syringe (25 Gm/50 Ml)) 12.5 gm IV PRN PRN; Protocol PRN Reason: FOR BG 50-69 IN ALERT PATIENT Stop: 01/16/17 06:44 Enoxaparin Sodium (Lovenox Inj 40 Mg/0.4 Ml Disp.Syrin) 40 mg SUBCUT DAILY JOLANTA Stop: 01/16/17 09:59 Last Admin: 12/20/16 09:14 Dose: 40 mg Glucagon (Glucagen Inj 1 Mg Vial) 1 mg IM PRN PRN; Protocol PRN Reason: Evaluate for BG < 70 Stop: 01/16/17 06:44 Glucose (Glutose 40% Gel 15 Gm Tube) 15 gm PO PRN PRN; Protocol PRN Reason: FOR BG 50-69 IN ALERT PATIENT Stop: 01/16/17 06:44 Glucose (Glutose 40% Gel 15 Gm Tube) 30 gm PO PRN PRN; Protocol PRN Reason: FOR BG < 50 IN ALERT PATIENT Stop: 01/16/17 06:44 Guaifenesin (Robitussin Syrup 200 Mg/10 Ml Ud Cup) 200 mg PO Q6HP PRN PRN Reason: FOR COUGH Stop: 01/17/17 20:32 Last Admin: 12/19/16 19:10 Dose: 200 mg Hydrocodone Bit/Homatropine Methylb (Hycodan 5-1.5 Mg Tablet) 1 tab PO Q6HP PRN PRN Reason: FOR COUGH Stop: 01/18/17 20:04 Last Admin: 12/20/16 09:12 Dose: 1 tab Hydrocortisone Sodium Succinate (Solu-Cortef Inj/Pf 100 Mg/ 2 Ml Sdv) 100 mg IV Q8 JOLANTA Stop: 01/17/17 13:59 Last Admin: 12/20/16 05:42 Dose: 100 mg Aztreonam 1 gm/ Dextrose 50 mls @ 100 mls/hr IV Q8A JOLANTA Stop: 12/24/16 17:59 Last Admin: 12/20/16 09:14 Dose: 1 gm Levofloxacin/Dextrose (Levaquin Rtu 500mg/D5w 100 Ml Premix) 500 mg in 100 mls @ 100 mls/hr IV DAILY JOLANTA Stop: 12/25/16 09:59 Last Admin: 12/20/16 09:13 Dose: 100 ml Sodium Chloride (Nacl 0.9% 1000 Ml Iv Soln) 1,000 mls @ 125 mls/hr IV CONTINUOUS PRN PRN Reason: THIS MED IS NOT "PRN" Stop: 01/18/17 15:24 Last Admin: 12/20/16 07:58 Dose: 1,000 ml Diltiazem HCl (Cardizem Rtu Inj 125 Mg-D5w 125 Ml Premix) 125 mg in 125 mls @ 0 mls/hr IV CONTINUOUS PRN; Protocol; Titrate PRN Reason: THIS MED IS NOT "PRN" Stop: 01/18/17 16:51 Vancomycin HCl 1,250 mg/ (Dextrose) 250 mls @ 166.667 mls/hr IV Q8A JOLANTA Stop: 12/27/16 01:59 Last Admin: 12/20/16 10:53 Dose: 1,250 mg Insulin Human Lispro (Humalog Insulin 100 Unit/1 Ml 3 Ml Vial) 0 - 12 unit SUBCUT ACHSP PRN PRN Reason: Protocol Stop: 01/16/17 06:44 Last Admin: 12/20/16 11:12 Dose: 2 unit Levalbuterol HCl (Xopenex Neb 1.25 Mg/3 Ml Ampul) 1.25 mg NEB RTQ4HP PRN PRN Reason: WHEEZING Stop: 01/19/17 09:06 Last Admin: 12/20/16 09:24 Dose: 1.25 mg Losartan Potassium (Cozaar 50 Mg Tablet) 100 mg PO QPM JOLANTA Stop: 01/16/17 17:59 Last Admin: 12/19/16 19:09 Dose: 100 mg Metoprolol Tartrate (Lopressor 50 Mg Tablet) 50 mg PO Q12 JOLANTA Stop: 01/16/17 21:59 Last Admin: 12/20/16 09:13 Dose: 50 mg Montelukast Sodium (Singulair 10 Mg Tablet) 10 mg PO QPM JOLANTA Stop: 01/16/17 17:59 Last Admin: 12/19/16 19:10 Dose: 10 mg - Allergies Allergies/Adverse Reactions: Penicillins Allergy (Verified 12/17/16 06:07) Hospital Course Hospital Course: This is a 51-year-old female with a history of the type 2 diabetes mellitus hypertension hyperlipidemia came to the emergency department last week because of the shortness of the breath and elevated white countAnd patient was initially put on the BiPAP due to the respiratory distress and patient was found to the bilateral pneumonia Patient was started on IV antibiotic and pulmonary was consulted Patient's a doing fair but not is the patient's heart rate goes up to 180 Range to the SVT When the patient's moved from out of the bed and patient have a CT angiogram was done for negative for pulmonary embolism and the patient was put on a Cardizem drip Patient still feels short of breath when she moves around and the patient's a DuoNeb change to the Xopenex and at this point patient is feeling a bit tightness in the chest and SVT in patients probably need a further cardiology evaluations and there is no cardiology available here in the hospital Discussed with the Dr. Ambrose the patient has been and [facility] with [facility] and accepted Physical Exam Vital Signs: Temp Pulse Resp BP Pulse Ox 97.7 F 91 22 H 131/79 H 100 12/20/16 11:20 12/20/16 11:20 12/20/16 12:00 12/20/16 11:58 12/20/16 12:00 Intake & Output 12/19/16 12/20/16 12/21/16 06:59 06:59 06:59 Intake Total 1830 3075 Output Total 3000 1100 Balance -1170 1975 Weight 78.1 kg 79.8 kg General appearance: PRESENT: no acute distress, well-developed, well-nourished Head exam: PRESENT: atraumatic, normocephalic Eye exam: PRESENT: conjunctiva pink, EOMI, PERRLA. ABSENT: scleral icterus Ear exam: PRESENT: normal external ear exam Mouth exam: PRESENT: moist, tongue midline Neck exam: ABSENT: carotid bruit, JVD, lymphadenopathy, thyromegaly Respiratory exam: PRESENT: clear to auscultation kal. ABSENT: rales, rhonchi, wheezes Cardiovascular exam: PRESENT: RRR. ABSENT: diastolic murmur, rubs, systolic murmur Pulses: PRESENT: normal dorsalis pedis pul Vascular exam: PRESENT: normal capillary refill GI/Abdominal exam: PRESENT: normal bowel sounds, soft. ABSENT: distended, guarding, mass, organolmegaly, rebound, tenderness Rectal exam: PRESENT: deferred Extremities exam: PRESENT: full ROM. ABSENT: calf tenderness, clubbing, pedal edema Neurological exam: PRESENT: alert, awake, oriented to person, oriented to place , oriented to time, oriented to situation, CN II-XII grossly intact. ABSENT: motor sensory deficit Psychiatric exam: PRESENT: appropriate affect, normal mood. ABSENT: homicidal ideation, suicidal ideation Skin exam: PRESENT: dry, intact, warm. ABSENT: cyanosis, rash Results Laboratory Results: 12/20/16 03:37 12/20/16 03:37 12/19/16 12/19/16 12/20/16 17:07 17:07 03:37 WBC 11.8 H RBC 3.63 L Hgb 10.1 L Hct 31.0 L MCV 85 MCH 27.8 MCHC 32.6 RDW 13.3 Plt Count 312 Seg Neutrophils % 81.5 H Lymphocytes % 12.9 L Monocytes % 5.4 Eosinophils % 0.0 Basophils % 0.2 Absolute Neutrophils 9.6 H Absolute Lymphocytes 1.5 Absolute Monocytes 0.6 Absolute Eosinophils 0.0 Absolute Basophils 0.0 Sodium 140.9 Potassium 4.3 Chloride 108 H Carbon Dioxide 20 L Anion Gap 13 BUN 21 H Creatinine 0.86 Est GFR ( Amer) > 60 Est GFR (Non-Af Amer) > 60 Glucose 200 H Calcium 8.6 Magnesium 1.8 Total Bilirubin 0.6 AST 24 ALT 35 Alkaline Phosphatase 83 Total Protein 6.4 Albumin 3.6 TSH Serum HCG, Qual NEGATIVE 12/20/16 12/20/16 03:37 09:44 WBC RBC Hgb Hct MCV MCH MCHC RDW Plt Count Seg Neutrophils % Lymphocytes % Monocytes % Eosinophils % Basophils % Absolute Neutrophils Absolute Lymphocytes Absolute Monocytes Absolute Eosinophils Absolute Basophils Sodium 139.9 Potassium 4.3 Chloride 108 H Carbon Dioxide 23 Anion Gap 9 BUN 18 Creatinine 0.61 Est GFR ( Amer) > 60 Est GFR (Non-Af Amer) > 60 Glucose 237 H Calcium 8.4 Magnesium Total Bilirubin 0.8 AST 19 ALT 32 Alkaline Phosphatase 65 Total Protein 5.6 L Albumin 3.1 L TSH 0.34 L Serum HCG, Qual 12/17/16 12/17/16 12/17/16 11:20 11:20 17:15 Creatine Kinase 121 141 H CK-MB (CK-2) 1.31 Troponin I 0.026 12/17/16 12/17/16 12/17/16 17:15 23:06 23:06 Creatine Kinase 138 H CK-MB (CK-2) 2.29 2.55 Troponin I 0.017 0.020 12/19/16 12/19/16 12/20/16 17:07 17:07 09:44 Creatine Kinase 125 146 H CK-MB (CK-2) 1.28 Troponin I 0.061 12/20/16 09:44 Creatine Kinase CK-MB (CK-2) 1.37 Troponin I 0.034 Impressions: Chest CT 12/17/16 00:00 IMPRESSION: As seen radiographically, extensive airspace infiltrates. Bilateral effusions. Presumably related to pulmonary edema. Superimposed pneumonia is also in the differential. Chest Ultrasound 12/18/16 11:37 IMPRESSION: Very small bilateral pleural effusions. No thoracentesis performed Chest/Abdomen CTA 12/19/16 00:00 IMPRESSION: 1. There is no evidence of pulmonary embolus. 2. Multicentric pneumonia. Chest X-Ray 12/20/16 00:00 IMPRESSION: Persistent multifocal airspace disease, edema versus pneumonia. Plan Time Spent: Greater than 30 Minutes - Patient's transfer to the tertiary center
[2016-12-20 16:53] LABS: CREATINE KINASE MB 1.98 ng/mL (<4.55); TROPONIN I 0.053 ng/mL
[2016-12-20] MEDS: LOSARTAN POTASSIUM 50 MG TABLET PO SCH (17:53)
[2016-12-20] MEDS: MONTELUKAST SODIUM 10 MG TABLET PO SCH (17:53)
[2016-12-20] MEDS: AMLODIPINE BESYLATE 5 MG TABLET PO SCH (17:54)
[2016-12-20 22:14] LABS: CREATINE KINASE MB 1.74 ng/mL (<4.55); TROPONIN I 0.044 ng/mL
[2016-12-20] MEDS: ATORVASTATIN CALCIUM 40 MG TABLET PO SCH (22:24)
--- NOTE | 2016-12-20 22:51 | EKG REPORT ---
SEVERITY:- NORMAL ECG - SINUS RHYTHM : Confirmed by: Rupa Ley 20-Dec-2016 22:50:12
[2016-12-21] MEDS: AZTREONAM 1 GM in DEXTROSE 5%-WATER 50 ML IV SCH ×2 (02:24→09:28)
[2016-12-21] MEDS: VANCOMYCIN HCL 1,250 MG in DEXTROSE 5%-WATER 250 ML IV SCH ×2 (03:06→09:52)
[2016-12-21 04:05] LABS: ABSOLUTE LYMPHOCYTES (AUTO) 1.2 10^3/uL (0.5-4.7); ABSOLUTE MONOCYTES (AUTO) 0.6 10^3/uL (0.1-1.4); ABSOLUTE NEUT (AUTO) 9.3 10^3/uL (1.7-8.2); BASOPHILS % (AUTO) 0.4 % (0-2); HEMATOCRIT 28.8 % (36.0-47.0); HEMOGLOBIN 9.7 g/dL (12.0-15.5); HGB HCT DIFFERENCE 0.3; LYMPHOCYTES % (AUTO) 10.4 % (13-45); MEAN CORPUSCULAR HEMOGLOBIN 28.2 pg (27.0-33.4); MEAN CORPUSCULAR HGB CONC 33.9 g/dL (32.0-36.0); MEAN CORPUSCULAR VOLUME 83 fl (80-97); MONOCYTES % (AUTO) 5.7 % (3-13); RED BLOOD COUNT 3.45 10^6/uL (3.72-5.28); RED CELL DISTRIBUTION WIDTH 13.2 % (11.5-14.0); SEGMENTED NEUTROPHILS % (AUTO) 83.5 % (42-78); WHITE BLOOD COUNT 11.1 10^3/uL (4.0-10.5)
[2016-12-21 04:23] LABS: ANION GAP 9 (5-19); BLOOD UREA NITROGEN 16 mg/dL (7-20); CALCIUM 8.4 mg/dL (8.4-10.2); CARBON DIOXIDE 23 mmol/L (22-30); CHLORIDE 108 mmol/L (98-107); CREATININE RESULT 0.58 mg/dL (0.52-1.25); GLUCOSE 228 mg/dL (75-110); MAGNESIUM 1.9 mg/dL (1.6-2.3); PHOSPHORUS 3.3 mg/dL (2.5-4.5); POTASSIUM 4.1 mmol/L (3.6-5.0); SODIUM 139.7 mmol/L (137-145)
[2016-12-21] MEDS: HYDROCORTISONE SOD SUCCINATE INJ/PF 100 MG/2 ML SDV IV SCH (05:53)
--- NOTE | 2016-12-21 07:57 | RADIOLOGY REPORT (SQ) ---
EXAM DESCRIPTION: CHEST SINGLE VIEW COMPLETED DATE/TIME: 12/21/2016 6:54 am REASON FOR STUDY: pna/resp failure COMPARISON: 12/20/2016. EXAM PARAMETERS: NUMBER OF VIEWS: One view. TECHNIQUE: Single frontal radiographic view of the chest acquired. RADIATION DOSE: NA LIMITATIONS: None. FINDINGS: LUNGS AND PLEURA: Moderate patchiness of the right upper lobe. Mild -moderate mixed inter stitial and airspace opacities of both lung oliver. Moderate lung volume. Small obscuration-effusio n of bilateral costophrenic angles. MEDIASTINUM AND HILAR STRUCTURES: No masses. Contour normal. HEART AND VASCULAR STRUCTURES: Mild enlargement of the cardiac silhouette. BONES: No acute findings. HARDWARE: None in the chest. OTHER: No other significant finding. IMPRESSION: No significant interval change. TECHNICAL DOCUMENTATION: JOB ID: [id number]
[2016-12-21] MEDS: LEVALBUTEROL HCL NEB 1.25 MG/3 ML AMPUL NEB PRN (08:36)
[2016-12-21] MEDS: ACETYLCYSTEINE 20% SOLN 800 MG/4 ML VIAL.NEB NEB SCH (08:36)
--- NOTE | 2016-12-21 09:13 | PDOC PROGRESS REPORT ---
Subjective Progress Note for:: 12/21/16 Subjective:: Patient is currently doing fair still short of breath when she moves around As per discussed with the credit manager who did the echo yesterday suggest patients may be of some moderate to severe MR Patients denied any fever No chest pain Still on the BiPAP Physical Exam Vital Signs: Temp Pulse Resp BP Pulse Ox 98.1 F 68 15 130/76 H 100 12/21/16 06:00 12/21/16 04:00 12/21/16 06:00 12/21/16 05:58 12/21/16 06:00 Intake & Output 12/20/16 12/21/16 12/22/16 06:59 06:59 06:59 Intake Total 3075 3147 Output Total 1100 1325 Balance 1975 1822 Weight 79.8 kg 80.3 kg General appearance: PRESENT: no acute distress, well-developed, well-nourished Head exam: PRESENT: atraumatic, normocephalic Eye exam: PRESENT: conjunctiva pink, EOMI, PERRLA. ABSENT: scleral icterus Ear exam: PRESENT: normal external ear exam Mouth exam: PRESENT: moist, tongue midline Neck exam: PRESENT: full ROM. ABSENT: carotid bruit, JVD, lymphadenopathy, thyromegaly Respiratory exam: PRESENT: clear to auscultation kal Cardiovascular exam: PRESENT: RRR. ABSENT: diastolic murmur, rubs, systolic murmur Pulses: PRESENT: normal dorsalis pedis pul, +2 pedal pulses bilateral Vascular exam: PRESENT: normal capillary refill GI/Abdominal exam: PRESENT: normal bowel sounds, soft. ABSENT: distended, guarding, mass, organolmegaly, rebound, tenderness Rectal exam: PRESENT: deferred Neurological exam: PRESENT: alert, awake, oriented to person, oriented to place , oriented to time, oriented to situation, CN II-XII grossly intact. ABSENT: motor sensory deficit Psychiatric exam: PRESENT: appropriate affect, normal mood. ABSENT: homicidal ideation, suicidal ideation Skin exam: PRESENT: dry, intact, warm. ABSENT: cyanosis, rash Results Laboratory Results: 12/21/16 03:48 12/21/16 03:48 12/20/16 12/21/16 12/21/16 09:44 03:48 03:48 WBC 11.1 H RBC 3.45 L Hgb 9.7 L Hct 28.8 L MCV 83 MCH 28.2 MCHC 33.9 RDW 13.2 Plt Count 317 Seg Neutrophils % 83.5 H Lymphocytes % 10.4 L Monocytes % 5.7 Eosinophils % 0.0 Basophils % 0.4 Absolute Neutrophils 9.3 H Absolute Lymphocytes 1.2 Absolute Monocytes 0.6 Absolute Eosinophils 0.0 Absolute Basophils 0.0 Sodium 139.7 Potassium 4.1 Chloride 108 H Carbon Dioxide 23 Anion Gap 9 BUN 16 Creatinine 0.58 Est GFR ( Amer) > 60 Est GFR (Non-Af Amer) > 60 Glucose 228 H Calcium 8.4 Phosphorus 3.3 Magnesium 1.9 TSH 0.34 L 12/17/16 12/17/16 12/17/16 11:20 11:20 17:15 Creatine Kinase 121 141 H CK-MB (CK-2) 1.31 Troponin I 0.026 NT-Pro-B Natriuret Pep 12/17/16 12/17/16 12/17/16 17:15 23:06 23:06 Creatine Kinase 138 H CK-MB (CK-2) 2.29 2.55 Troponin I 0.017 0.020 NT-Pro-B Natriuret Pep 12/19/16 12/19/16 12/20/16 17:07 17:07 09:44 Creatine Kinase 125 146 H CK-MB (CK-2) 1.28 Troponin I 0.061 NT-Pro-B Natriuret Pep 12/20/16 12/20/16 12/20/16 09:44 11:56 15:40 Creatine Kinase 203 H CK-MB (CK-2) 1.37 Troponin I 0.034 NT-Pro-B Natriuret Pep 928 H 12/20/16 12/20/16 12/20/16 15:40 21:35 21:35 Creatine Kinase 171 H CK-MB (CK-2) 1.98 1.74 Troponin I 0.053 0.044 NT-Pro-B Natriuret Pep Impressions: Chest CT 12/17/16 00:00 IMPRESSION: As seen radiographically, extensive airspace infiltrates. Bilateral effusions. Presumably related to pulmonary edema. Superimposed pneumonia is also in the differential. Chest Ultrasound 12/18/16 11:37 IMPRESSION: Very small bilateral pleural effusions. No thoracentesis performed Chest/Abdomen CTA 12/19/16 00:00 IMPRESSION: 1. There is no evidence of pulmonary embolus. 2. Multicentric pneumonia. Chest X-Ray 12/21/16 06:00 IMPRESSION: No significant interval change. Assessment & Plan - Diagnosis (1) Acute respiratory failure with hypoxia Is this a current diagnosis for this admission?: Yes Plan: Currently all stable with the nasal cannula 3 L we will discuss with the pulmonary may be patients need a some CT angiogram to rule out other etiology are not (2) Bilateral pneumonia Qualifiers: Pneumonia type: due to unspecified organism Lung location: unspecified part of lung Qualified Code(s): J18.9 - Pneumonia, unspecified organism Is this a current diagnosis for this admission?: Yes Plan: Continues to IV antibiotic (3) Diabetes mellitus Qualifiers: Diabetes mellitus type: type 2 Diabetes mellitus complication status: without complication Diabetes mellitus manager long term care insulin use: without correction use Qualified Code(s): E11.9 - Type 2 diabetes mellitus without complications Is this a current diagnosis for this admission?: Yes Plan: Continues a sliding scale with the [facility] (4) Hypertension Is this a current diagnosis for this admission?: Yes Plan: Currently stable (5) Pleural effusion Is this a current diagnosis for this admission?: Yes (6) Sinus tachycardia Is this a current diagnosis for this admission?: Yes Plan: Continues to Cardizem drip we will repeat the cardiac enzymes and EKG order the TSHEcho is already done waiting for the reportCardiology consult was placed (7) Mitral regurgitation Qualifiers: Cardiac valve disease etiology: nonrheumatic Qualified Code(s): I34.0 - Nonrheumatic mitral (valve) insufficiency Is this a current diagnosis for this admission?: Yes Plan: Within new onset patient is already transferred to the [facility] for the further evaluations I think patients short of breath with movement with elevated hr Possible due to underlying mr Discussed with the patient about the initial preliminary echo report Still waiting for the final report - Time Time Spent with patient: 25-34 minutes Medications reviewed and adjusted accordingly: Yes Anticipated discharge: [facility] Within: Other - Inpatient Certification Medical Necessity: Need Close Monitoring Due to Risk of Patient Decompensation, Need for IV Antibiotics Post Hospital Care: D/C Clean Out Driller Helper Documentation - Plan Summary Plan Summary: Discussed with the patient and the family about the all the plan continues to current medications for transfer to the [facility]
[2016-12-21] MEDS: METOPROLOL TARTRATE 50 MG TABLET PO SCH (09:25)
[2016-12-21] MEDS: BENZONATATE 100 MG CAPSULE PO PRN (09:25)
[2016-12-21] MEDS: LEVOFLOXACIN 500 MG/D5W RTU 500 MG/100 ML RTUPB IV SCH (09:27)
[2016-12-21] MEDS: ENOXAPARIN SODIUM INJ 40 MG/0.4 ML DISP.SYRIN SUBCUT SCH (09:28)
[2016-12-21 10:51] LABS: ARTERIAL BLOOD BASE EXCESS -0.8 mmol/L; ARTERIAL BLOOD O2 SATURATION 96.7 % (94-98)
[2016-12-21] MEDS ORDERED: FUROSEMIDE INJ/PF 40 MG/4 ML SDV ONE (11:47)
[2016-12-21] MEDS ORDERED: LORAZEPAM 1 MG TABLET ONE (11:55)
[2016-12-21] MEDS ORDERED: MORPHINE SULFATE 60 MG/60 ML RTUINJ IV PRN (12:03)
[2016-12-21] MEDS ORDERED: LEVALBUTEROL HCL NEB 1.25 MG/3 ML AMPUL NEB ONE (12:06)
[2016-12-21] MEDS ORDERED: LORAZEPAM 0.5 MG TABLET PO ONE (12:15)
[2016-12-21] MEDS ORDERED: FUROSEMIDE INJ/PF 40 MG/4 ML SDV IV ONE (12:15)
[2016-12-21 12:30] LABS: CREATINE KINASE MB 1.28 ng/mL (<4.55); TROPONIN I 0.032 ng/mL
[2016-12-21 13:16] LABS: ARTERIAL BLOOD BASE EXCESS -0.9 mmol/L; ARTERIAL BLOOD O2 SATURATION 93.9 % (94-98)
--- NOTE | 2016-12-21 13:21 | RADIOLOGY REPORT (SQ) ---
EXAM DESCRIPTION: CHEST SINGLE VIEW COMPLETED DATE/TIME: 12/21/2016 12:19 pm REASON FOR STUDY: SHORTNESS OF BREATHE COMPARISON: CHEST FILMS 12/21/2016, 12/20/2016, 12/18/2016 CT CHEST 12/19/2016, 12/17/2016 EXAM PARAMETERS: NUMBER OF VIEWS: One view. TECHNIQUE: Single frontal radiographic view of the chest acquired. RADIATION DOSE: NA LIMITATIONS: None. FINDINGS: LUNGS AND PLEURA: Airspace disease is present bilaterally, accounting for differences in t echnique this is similar compared to chest films 12/21/2016 and 12/20/2016. No gross pleural effusions. No pneumothorax. MEDIASTINUM AND HILAR STRUCTURES: No masses. Contour normal. HEART AND VASCULAR STRUCTURES: No cardiomegaly BONES: No acute findings. HARDWARE: None in the chest. OTHER: No other significant finding. IMPRESSION: Stable bilateral airspace disease, edema versus pneumonia. TECHNICAL DOCUMENTATION: JOB ID: [id number]
[2016-12-21] MEDS ORDERED: FUROSEMIDE INJ/PF 20 MG/2 ML SDV IV ONE (14:00)
--- NOTE | 2016-12-21 14:08 | TRANSFER SUMMARY E ---
Transfer Summary NAME: VJ AMBROSE : 1965 AGE: 51Y ADMITTED: 12/17/2016 TRANSFERRED: 12/21/2016 TRANSFER DIAGNOSES: 1. Mitral regurgitation, moderate to severe. 2. Flash pulmonary edema due to the above condition. 3. Bilateral pneumonia. 4. Type 2 diabetes mellitus. 5. Hypertension. 6. Hyperlipidemia. 7. Anxiety disorder. CONSULTATION: *------*, pulmonary. PROCEDURES: None. COMPLICATIONS: None. DIAGNOSTICS: Patient's CT angiogram is negative. Chest x-ray shows the bilateral airspace disease with some pulmonary vascular congestion. LAB: WBC is 11.1, hemoglobin is 9.7, platelet count is 317. The pH was 7.45 this morning, pCO2 is 33.7, FiO2 is 35%. Sodium is 139, potassium is 3.41, BUN is 16, creatinine 0.58. Cardiac enzymes: Last one is 0.032. Patient's NT-BNP was 928. CURRENT MEDICATIONS: 1. Azactam IV q.8, 1 g. 2. Levaquin 500 daily. 3. Vancomycin per pharmacy dosing. VITAL SIGNS: Currently, temperature is 99.3, blood pressure was 147/84, respirations were 20, O2 saturation is 100% and currently on a BiPAP. HOSPITAL COURSE: This is a 51-year-old female who basically presented to the emergency department with the complaint of shortness of breath and not feeling well. Initially, patient was diagnosed with a bilateral airspace disease and respiratory distress. She was put in the ICU and put on BiPAP. Patient responds very well with the IV antibiotics. Fever is coming down, still running a low grade fever. Patient at this point noticed that every time patient moves, patient gets more short of breath and patient's heart rate goes up to 181-190 range and patient has SVT. Patient at this point had echocardiogram that was done with unofficial reading which shows some moderate to severe MR and patient has this new murmur. At this point, patient's shortness of breath symptoms are related to most likely underlying cardiac with ongoing pulmonary conditions. We unfortunately have no dough raiser and at this point, patient probably needs a further cardiac evaluation and possible DEVEN and to further rule any other vegetations in the valves. Patient continues to be covered with the broad spectrum antibiotics. Continues the current medications. Patient was given IV Lasix today 40 mg which produced more than 500 mL of fluid and patient started feeling better. Very extensive discussion with the patient's family including Dr. Ambrose, patient's , and 2 other sons regarding the patient's current condition and transfer if possible as patient can go. Otherwise, patient is currently hemodynamically stable when I saw him in the ICU. More than 1 hour spent examining the patient and reviewing the records. DICTATING PHYSICIAN: HONEY GONZALEZ M.D. [id number] PHY#: [id number] ID: [id number] JOB#: [id number] ACCT: [id number] cc:HONEY GONZALEZ M.D. >
[2016-12-21 14:36] LABS: ANION GAP 13 (5-19); BLOOD UREA NITROGEN 16 mg/dL (7-20); CALCIUM 9.1 mg/dL (8.4-10.2); CARBON DIOXIDE 26 mmol/L (22-30); CHLORIDE 102 mmol/L (98-107); CREATININE RESULT 0.66 mg/dL (0.52-1.25); GLUCOSE 264 mg/dL (75-110); POTASSIUM 3.8 mmol/L (3.6-5.0); SODIUM 140.6 mmol/L (137-145)
--- NOTE | 2016-12-21 14:36 | PDOC PROGRESS REPORT ---
Subjective Progress Note for:: 12/21/16 Subjective:: Patient Has had several episodes of intermittent tachypnea usually relieved with a diuretic suggestive of flash pulmonary edema Physical Exam Vital Signs: Temp Pulse Resp BP Pulse Ox 98.1 F 68 15 130/76 H 100 12/21/16 06:00 12/21/16 04:00 12/21/16 06:00 12/21/16 05:58 12/21/16 06:00 Intake & Output 12/20/16 12/21/16 12/22/16 06:59 06:59 06:59 Intake Total 3075 3147 Output Total 1100 1325 Balance 1975 1822 Weight 79.8 kg 80.3 kg General appearance: PRESENT: no acute distress, cooperative, disheveled, obese Head exam: PRESENT: atraumatic, normocephalic Eye exam: PRESENT: conjunctiva pale, EOMI Mouth exam: PRESENT: moist, neck supple, tongue midline Neck exam: PRESENT: carotid bruit Respiratory exam: PRESENT: crackles, decreased breath sounds, rhonchi, symmetrical, unlabored. ABSENT: retraction, stridor, wheezes Cardiovascular exam: PRESENT: RRR, +S1, +S2, systolic murmur - 3/6 holosystolic murmur not appreciated on prior examinations Pulses: PRESENT: normal radial pulses GI/Abdominal exam: PRESENT: normal bowel sounds, soft. ABSENT: distended, guarding, mass, organolmegaly, rebound, tenderness Rectal exam: PRESENT: deferred Gentrourinary exam: PRESENT: indwelling catheter Musculoskeletal exam: PRESENT: normal inspection Neurological exam: PRESENT: alert, awake Psychiatric exam: PRESENT: normal mood Skin exam: PRESENT: dry, warm Results Laboratory Results: 12/21/16 03:48 12/21/16 03:48 12/20/16 12/21/16 12/21/16 09:44 03:48 03:48 WBC 11.1 H RBC 3.45 L Hgb 9.7 L Hct 28.8 L MCV 83 MCH 28.2 MCHC 33.9 RDW 13.2 Plt Count 317 Seg Neutrophils % 83.5 H Lymphocytes % 10.4 L Monocytes % 5.7 Eosinophils % 0.0 Basophils % 0.4 Absolute Neutrophils 9.3 H Absolute Lymphocytes 1.2 Absolute Monocytes 0.6 Absolute Eosinophils 0.0 Absolute Basophils 0.0 Sodium 139.7 Potassium 4.1 Chloride 108 H Carbon Dioxide 23 Anion Gap 9 BUN 16 Creatinine 0.58 Est GFR ( Amer) > 60 Est GFR (Non-Af Amer) > 60 Glucose 228 H Calcium 8.4 Phosphorus 3.3 Magnesium 1.9 TSH 0.34 L 12/17/16 12/17/16 12/17/16 11:20 11:20 17:15 Creatine Kinase 121 141 H CK-MB (CK-2) 1.31 Troponin I 0.026 NT-Pro-B Natriuret Pep 12/17/16 12/17/16 12/17/16 17:15 23:06 23:06 Creatine Kinase 138 H CK-MB (CK-2) 2.29 2.55 Troponin I 0.017 0.020 NT-Pro-B Natriuret Pep 12/19/16 12/19/16 12/20/16 17:07 17:07 09:44 Creatine Kinase 125 146 H CK-MB (CK-2) 1.28 Troponin I 0.061 NT-Pro-B Natriuret Pep 12/20/16 12/20/16 12/20/16 09:44 11:56 15:40 Creatine Kinase 203 H CK-MB (CK-2) 1.37 Troponin I 0.034 NT-Pro-B Natriuret Pep 928 H 12/20/16 12/20/16 12/20/16 15:40 21:35 21:35 Creatine Kinase 171 H CK-MB (CK-2) 1.98 1.74 Troponin I 0.053 0.044 NT-Pro-B Natriuret Pep Impressions: Chest CT 12/17/16 00:00 IMPRESSION: As seen radiographically, extensive airspace infiltrates. Bilateral effusions. Presumably related to pulmonary edema. Superimposed pneumonia is also in the differential. Chest Ultrasound 12/18/16 11:37 IMPRESSION: Very small bilateral pleural effusions. No thoracentesis performed Chest/Abdomen CTA 12/19/16 00:00 IMPRESSION: 1. There is no evidence of pulmonary embolus. 2. Multicentric pneumonia. Assessment & Plan - Diagnosis (1) Acute respiratory failure with hypoxia Is this a current diagnosis for this admission?: Yes Plan: Combination of pneumonia and congestive heart failure/pulmonary edema several episodes of flash pulmonary edema resolved with diuretics (2) Bilateral pneumonia Qualifiers: Pneumonia type: due to unspecified organism Lung location: unspecified part of lung Qualified Code(s): J18.9 - Pneumonia, unspecified organism Is this a current diagnosis for this admission?: Yes Plan: WBC 11.2 minimal left shift no bandemia (3) Sepsis Qualifiers: Sepsis type: sepsis due to unspecified organism Qualified Code(s): A41.9 - Sepsis, unspecified organism Is this a current diagnosis for this admission?: No - Time Critical Time spent with patient: 35 or more minutes - 55 minutes spoke with RN then PCP later RN followed by PCP and family members
[2016-12-21 16:33] VITALS: BP 113/68
--- NOTE | 2016-12-21 20:15 | EKG REPORT ---
SEVERITY:- NORMAL ECG - SINUS RHYTHM : Confirmed by: Rupa Ley 21-Dec-2016 20:14:51
[2016-12-22] MEDS ORDERED: LEVOFLOXACIN 500 MG TABLET PO SCH (10:00)
--- NOTE | 2016-12-22 10:01 | XCELERA REPORT ---
[address] [address] Transthoracic Echocardiogram Report Name: VJ PICKENS Age: 51 yrs Gender: Female : 1965 Patient Status: Inpatient Patient Location: ICU^607^A Study Date: 12/19/2016 09:37 AM Height: 62 in Weight: 172 lb BSA: 1.8 m2 Reason For Study: sob/cardic arrythemia Ordering Physician: HONEY GONZALEZ Performed By: Jennifer Casillas Interpretation Summary Hyperdynamic LV contractility with no segmental regional wall motion abnormality, no LVH, no LV dilatation, LV diastolic dysfunction based on Tissue doppler imaging. MV thickened with PML prolapse with at least moderate/ severe MR with perhaps mild LA enlargement, no YVETTE measured, and posterior LA wall not imaged into pulm veins. No flail leaflet seen. TR is poorly assessed by color flow Based on TR jet, RVSP is >60 mm Hg (moderate pulm hypertension). mod/severe MR thick AML and PML of MV, w PML prolapse. MMode/2D Measurements & Calculations RVDd: 2.5 cm LVIDd: 5.3 cm FS: 35.2 % Ao root diam: 2.5 cm IVSd: 0.81 cm LVIDs: 3.4 cm EDV(Teich): 135.6 ml LVPWd: 0.79 cm ESV(Teich): 48.8 ml Ao root area: 4.7 cm2 EF(Teich): 64.0 % LA dimension: 3.9 cm Doppler Measurements & Calculations MV E max paulo: MV P1/2t max paulo: Ao V2 max: LV V1 max P.9 cm/sec 183.2 cm/sec 156.4 cm/sec 5.1 mmHg MV A max paulo: MV P1/2t: 38.5 msec Ao max PG: LV V1 max: 108.0 cm/sec 9.8 mmHg 112.9 cm/sec MV E/A: 1.7 MVA(P1/2t): 5.7 cm2 MV dec slope: 1392 cm/sec2 PA V2 max: TR max paulo: 136.4 cm/sec 383.1 cm/sec PA max P.4 mmHgTR max P.7 mmHg Left Ventricle The left ventricle is grossly normal size. There is normal left ventricular wall thickness. The left ventricular ejection fraction is normal. The left ventricle is hyperdynamic. Doppler measurements suggest impaired left ventricular relaxation, which is associated with grade I/IV or mild diastolic dysfunction. No regional wall motion abnormalities noted. There is no thrombus. Right Ventricle The right ventricle is normal in size, thickness and function. The right ventricular systolic function is normal. Atria The right atrium is normal. The left atrium is mildly dilated. The interatrial septum is intact with no evidence for an atrial septal defect. Mitral Valve There is mild mitral leaflet calcification. There is mild mitral valve prolapse. There is no mitral valve stenosis. There is a moderate to severe amount of mitral regurgitation. Aortic Valve The aortic valve is normal in structure and functions normally. The aortic valve is trileaflet. The aortic valve opens well. Cannot exclude aortic valvular vegetation. There is no aortic valve stenosis. No aortic regurgitation is present. Tricuspid Valve The tricuspid valve is not well visualized, but is grossly normal. There is no tricuspid valve prolapse. There is no tricuspid stenosis. There is a moderate amount of tricuspid regurgitation. Right ventricular systolic pressure is estimated to be elevated at >60mmHg. Great Vessels The aortic root is not well visualized. Effusions Minimal pericardial effusion. I WMSI = 1.00 % Normal = 100 Segments Size X - Cannot 2 - 4 - 1-2 small Interpret 1 - Normal Hypokinetic 3 - AkineticDyskinetic 3-5 moderate 5 - 6-14 large Aneurysmal 15-16 diffuse : HONEY GONZALEZ > Ty Nevarez
== END 2016-12-21 16:18 | disposition short-term general hospital (02) | DRG 871 ==
LOC: ER 05:11 → EH 06:10 → UNDOADMIN 06:10 → EH 06:37 → ICU 08:58
PROVIDERS: ADMIT Family Medicine; ATTEND Family Medicine
PROC: 3E0F73Z Introduction of Anti-inflammatory into Respiratory Tract, Via Natural or Artificial Opening (ICD-10-PCS; 2016-12-17)
PROC: 5A09457 Assistance with Respiratory Ventilation, 24-96 Consecutive Hours, Continuous Positive Airway Pressure (ICD-10-PCS; principal; 2016-12-18)
DX: A41.9 Sepsis, unspecified organism (principal); J18.9 Pneumonia, unspecified organism; J96.01 Acute respiratory failure with hypoxia; J81.1 Chronic pulmonary edema; I34.0 Nonrheumatic mitral (valve) insufficiency; E11.9 Type 2 diabetes mellitus without complications; I10 Essential (primary) hypertension; E78.5 Hyperlipidemia, unspecified; F41.9 Anxiety disorder, unspecified; R00.0 Tachycardia, unspecified; I48.91 Unspecified atrial fibrillation; R65.20 Severe sepsis without septic shock; Z88.0 Allergy status to penicillin; Z82.49 Family history of ischemic heart disease and other diseases of the circulatory system; Z83.3 Family history of diabetes mellitus; Z80.9 Family history of malignant neoplasm, unspecified
CPT/HCPCS: 36415; 36600; 71010; 71250; 71275; 76604; 80048; 80053; 80061; 80076; 80202; 80307; 81001; 82140; 82150; 82550; 82553; 82803; 82962; 83036; 83605; 83615; 83690; 83735; 83880; 84100; 84439; 84443; 84484; 84703; 85025; 85379; 85610; 85730; 86701; 87040; 87070; 87086; 87205; 93005; 93010; 93306; 94640; 94660; 94667; 94668; 96365; 96367; 96375; 99291; J0456; J0696; J1650; J1720; J1815; J1940; J1956; J2930; J3370; J3475; J3490; J7030; J7040; J7060; J7620

== ENCOUNTER → 2017-01-25 | Outpatient (CLI) | payer OTHER ==
--- NOTE | 2017-01-25 12:05 | RADIOLOGY REPORT (SQ) ---
EXAM DESCRIPTION: CHEST PA/LATERAL COMPLETED DATE/TIME: 01/25/2017 11:53 am REASON FOR STUDY: COUGH COMPARISON: 12/21/2016, 12/20/2016, chest CT 12/19/2016 EXAM PARAMETERS: NUMBER OF VIEWS: two views TECHNIQUE: Digital Frontal and Lateral radiographic views of the chest acquired. RADIATION DOSE: NA LIMITATIONS: none FINDINGS: LUNGS AND PLEURA: Minimal right basilar atelectasis. Trace fluid in the left lateral cost ophrenic sulcus with minimal left retrocardiac atelectasis. No fluffy alveolar infiltrates worrisome for edema or pneumonia. No pneumothorax. MEDIASTINUM AND HILAR STRUCTURES: No masses or contour abnormalities. HEART AND VASCULAR STRUCTURES: No cardiomegaly. Interval sternotomy with CABG and left atrial append age clip. BONES: No acute findings. HARDWARE: None in the chest. OTHER: No other significant finding. IMPRESSION: Postsurgical changes. Minimal bibasilar atelectasis. Trace fluid in the left lateral c ostophrenic sulcus. TECHNICAL DOCUMENTATION: JOB ID: [id number] [employer]- All Rights Reserved
== END ==
LOC: OD 11:31
PROVIDERS: ATTEND Family Medicine
DX: R05 Cough (principal)
CPT/HCPCS: 71020

== ENCOUNTER → 2019-02-03 | Outpatient (CLI) | payer OTHER | LOC: OD 13:01 | PROVIDERS: ATTEND Internal Medicine Gastroenterology | DX: D50.9 Iron deficiency anemia, unspecified (principal) | CPT/HCPCS: 36415; 82607; 82728; 82746 ==

== ENCOUNTER → 2019-12-05 | Outpatient (CLI) | payer OTHER ==
--- NOTE | 2019-12-05 12:47 | WOMENS IMAGING REPORT ---
EXAM DESCRIPTION: BILAT SCREENING MAMMO W/CAD IMAGES COMPLETED DATE/TIME: 12/05/2019 9:25 am REASON FOR STUDY: Z12.31 ENCOUNTER FOR SCREENING MAMMOGRAM FOR MALIGNANT NEOPLASM OF BREAST Z12.31 ENCNTR SCREEN MAMMOGRAM FOR MALIGNANT NEOPLASM OF JOSE COMPARISON: 01/07/2016, 12/16/2014, 12/11/2013 EXAM PARAMETERS: Standard craniocaudal and mediolateral oblique views of each breast recorded using digital acquisition. Read with the assistance of CAD. .FORMERLY [facility] - [employer] Version 9.2 LIMITATIONS: None. FINDINGS: No suspicious masses, suspicious calcifications or architectural distortion. No areas of c oncern. IMPRESSION: NEGATIVE MAMMOGRAM. BIRADS 1 BREAST DENSITY: b. There are scattered areas of fibroglandular density. BIRAD: ASSESSMENT: 1 NEGATIVE RECOMMENDATION: ROUTINE SCREENING COMMENT: The patient has been notified of the results by letter per MQSA requirements. Additional no tification policies are in place for contacting patient with suspicious or incomplete findings. Quality ID #[id number]: The [employer] recommends an annual screening mammogram for women aged 40 years or over. This facility utilizes a reminder system to ensure that all patients receive reminder letters, and/or direct phone calls for appointments. This includes reminders for routine scr eening mammograms, diagnostic mammograms, or other Breast Imaging Interventions when appropriate. Th is patient will be placed in the appropriate reminder system. TECHNICAL DOCUMENTATION: FINDING NUMBER: (1) ASSESSMENT: (1) JOB ID: [id number] 2010 [employer]- All Rights Reserved Reading location - IP/workstation name: [email or web address]
== END ==
LOC: RAD 08:50
PROVIDERS: ATTEND Physician Assistant
DX: Z12.31 Encounter for screening mammogram for malignant neoplasm of breast (principal)
CPT/HCPCS: 77067